=== PATIENT | male | born 1970 | race Caucasian/White ===

== ENCOUNTER → 2020-06-18 | Outpatient (BNVA) | payer MEDICAID, SELFPAY | PROVIDERS: PCP Family Medicine; Referring Provider Family Medicine; Visit Provider Physician Assistant | DX: K21.9 Gastro-esophageal reflux disease without esophagitis (principal); Z79.899 Other long term (current) drug therapy; D12.6 Benign neoplasm of colon, unspecified; D13.1 Benign neoplasm of stomach; K64.9 Unspecified hemorrhoids; K57.30 Diverticulosis of large intestine without perforation or abscess without bleeding | CPT/HCPCS: 99213 ==

== ENCOUNTER → 2020-09-18 09:42 | Outpatient (BNVA) | payer MEDICAID, SELFPAY | PROVIDERS: PCP Family Medicine; Visit Provider Physician Assistant | DX: Z76.89 Persons encountering health services in other specified circumstances (principal) ==

== ENCOUNTER 2020-11-19 09:59 | Emergency (ER) | payer MEDICAID, SELFPAY ==
[2020-11-19 10:04] VITALS: BP 141/93; PULSE 79; RESP 16; TEMP 36.6; O2SAT 98; BMI 27.7
--- NOTE | 2020-11-19 10:34 | ED_ITS ---
HPI - Back Pain/Injury General Chief Complaint: Back Pain/Injury Stated Complaint: Back Pain Time Seen by Provider: 11/19/20 10:09 Source: patient Mode of arrival: ambulatory History of Present Illness HPI Narrative: 50-year-old male with a past medical history of GERD, diverticulosis, hemorrhoids, presenting to the ED complaining low back pain since yesterday s/p heavy lifting at work. Denies direct trauma/injury, numbness, tingling, weakness, urinary incontinence/retention, fever, chills MD elicited complaint: back pain Related Data Home Medications Medication Instructions Recorded Confirmed amlodipine 5 mg tablet 5 mg PO DAILY 06/18/20 09/18/20 fenofibrate micronized 134 mg 134 mg PO DAILY 06/18/20 09/18/20 capsule sumatriptan succinate 100 mg tablet 100 mg PO Q2-4H PRN 06/18/20 09/18/20 Previous Rx's Medication Instructions Recorded omeprazole 20 mg capsule,delayed 20 mg PO DAILY #30 cap 06/18/20 release acetaminophen [Tylenol Extra 500 mg PO Q6H PRN #20 tab 11/19/20 Strength] cyclobenzaprine 5 mg PO Q8H PRN 5 Days #14 tab 11/19/20 lidocaine [Lidoderm] 1 patch TOPICAL DAILY PRN #30 ea 11/19/20 MDD remove after 12 hours naproxen 500 mg PO BID PRN 10 Days #20 tab 11/19/20 Allergies Allergy/AdvReac Type Severity Reaction Status Date / Time No Known Allergies Allergy Verified 11/19/20 10:07 [No Known Allergies*] Review of Systems Review of Systems: Constitutional: No Fever, No Chills Genitourinary: No Urinary Incontinence/retention Musculoskeletal: +back pain, No Myalgias Skin: No Skin Lesions, No rash Neuro: No Weakness, No Numbness, No Paresthesias Yes all other systems are reviewed and are negative FOR[facility]LY [facility] Past Medical History Attestation statement: The following information was validated with the patient. Medical History Acid reflux Diverticulosis of colon Hemorrhoids Social History Social History (Updated 09/18/20 @ 10:15 by Carlene Adorno PA-C) Alcohol intake: never Smoking Status: Never smoker Smoked in Last 30 Days: No Use of substances other than those prescribed or required for medical reasons: No Advance Directives: No Advance Directives Information Provided: No Current occupational status: employed Physical Exam Vital Signs: Vital Signs: Last Vital Signs Temp 97.8 F 11/19/20 10:04 Pulse 79 11/19/20 10:04 Resp 16 11/19/20 10:04 BP 141/93 H 11/19/20 10:04 Pulse Ox 98 11/19/20 10:04 Body Mass Index 27.7 Const: General: cooperative and healthy appearing Orientation/consciousness: patient oriented x3 Limitations: no limitations HENMT: Head: Yes normal to inspection Ears: hearing grossly normal bilaterally General nose exam: Normal external nose present Face and sinus: Yes normal facial exam Eyes: General: appearance normal, both eyes and all related structures EOM: EOMs intact bilaterally Neck: Other: No midline cervical spinous tenderness or step-off Neck: Yes normal visual inspection Resp: Effort & Inspection: normal respiratory effort Cardio: Rate: regular rate Back/Spine/Pelvis: Other: No midline thoracic/lumbar spinous tenderness/step- off or deformity. Pain not reproducible. Visible lumbar MSK spasming Skin: Rashes: no rashes Wounds: no wounds Neuro: Other: No saddle anesthesia General: patient oriented x3, gait normal and tone normal Gait exam (Neuro): Normal gait present Motor exam (neuro): 5/5 motor strength present throughout Extrem: General: Yes normal to inspection MDM - Back Pain/Injury MDM Narrative Medical decision making narrative: On exam VSS, NAD/well-appearing, no midline spinous tenderness throughout, no red flag symptoms, no saddle anesthesia. Likely MSK pain/spasming. Low concern for cauda equina/cord compression or fracture Differential Diagnosis Differential diagnosis: Likely lumbar radiculopathy and strain of lumbar region; Unlikely renal colic Discharge Plan Discharge Clinical Impression: Strain of lumbar region Patient Disposition: Home, Self-Care Instructions: Back Pain (ED) Additional Instructions: Your pain is likely musculoskeletal Flexeril is a muscle relaxer, take at night as it makes you drowsy, do not drive, drink alcohol, or operate machinery while taking it Naproxen as an anti-inflammatory / pain medication, take with food Lidoderm patches are numbing patches, apply to painful area In addition take Tylenol at home If symptoms persist or worsen, pain becomes unbearable, you developed urinary retention or incontinence, or weakness return to the ED Es probable que jones dolor sea musculoesquel?susana Flexeril es un relajante muscular, t?johnson por la noche ya que le produce somnolencia, no conduzca, no jerardo alcohol ni utilice maquinaria mientras lo woody. Naproxeno stephani medicamento antiinflamatorio / analg?sico, arpan con alimentos. Los parches de Lidoderm son parches que adormecen, se aplican al ?bo dolorida Adem?s, tome Tylenol en casa. Si los s?ntomas persisten o empeoran, el dolor se vuelve insoportable, desarroll? retenci?n urinaria o incontinencia o debilidad, regrese al servicio de urgencias Prescriptions: New acetaminophen [Tylenol Extra Strength] 500 mg tablet 500 mg PO Q6H PRN (Reason: pain or fever) Qty: 20 RF: 0 lidocaine [Lidoderm] 5 % adhesive patch,medicated 1 patch topical DAILY MDD remove after 12 hours PRN (Reason: pain) Qty: 30 RF: 0 naproxen 500 mg tablet 500 mg PO BID PRN (Reason: pain) 10 Days Qty: 20 RF: 0 cyclobenzaprine 5 mg tablet 5 mg PO Q8H PRN (Reason: pain (scale score 7-10)) 5 Days Qty: 14 RF: 0 No Action amlodipine 5 mg tablet 5 mg PO DAILY RF: 0 fenofibrate micronized 134 mg capsule 134 mg PO DAILY RF: 0 sumatriptan succinate 100 mg tablet 100 mg PO Q2-4H PRNRF: 0 omeprazole 20 mg capsule,delayed release(DR/EC) 20 mg PO DAILY Qty: 30 RF: 11 Referrals: Bushra Segura MD [Primary Care Provider] - 2 days Stand Alone Forms: Work/School Release Interventions: ED Discharge Assessment Last Done: 11/19/20 11:05 Discharge Date/Time: 11/19/20 11:15 Print Language: Zambian
== END 2020-11-19 11:15 | disposition home or self-care (01) ==
PROVIDERS: Emergency Provider Internal Medicine; PCP Family Medicine
DX: S39.012A Strain of muscle, fascia and tendon of lower back, initial encounter (principal); X50.0XXA Overexertion from strenuous movement or load, initial encounter; Y93.89 Activity, other specified; Y92.512 Supermarket, store or market as the place of occurrence of the external cause; Y99.0 Civilian activity done for income or pay
CPT/HCPCS: 99283; 99284

== ENCOUNTER → 2022-06-03 15:31 | Outpatient (BNVA) | payer OTHER, SELFPAY | PROVIDERS: PCP Family Medicine; Visit Provider Physician Assistant | DX: S97.81XA Crushing injury of right foot, initial encounter (principal); W20.8XXA Other cause of strike by thrown, projected or falling object, initial encounter | CPT/HCPCS: 73630; 99204 ==

== ENCOUNTER → 2022-06-07 09:33 | Outpatient (BNVA) | payer OTHER, SELFPAY | PROVIDERS: PCP Family Medicine; Visit Provider Physician Assistant Medical | DX: S97.81XD Crushing injury of right foot, subsequent encounter (principal); W20.8XXD Other cause of strike by thrown, projected or falling object, subsequent encounter | CPT/HCPCS: 99213 ==

== ENCOUNTER → 2022-06-23 13:03 | Outpatient (BNVA) | payer OTHER, SELFPAY | PROVIDERS: PCP Family Medicine; Visit Provider Physician Assistant | DX: S97.81XD Crushing injury of right foot, subsequent encounter (principal); W20.8XXD Other cause of strike by thrown, projected or falling object, subsequent encounter | CPT/HCPCS: 99213 ==

== ENCOUNTER → 2022-07-15 08:43 | Outpatient (BNVA) | payer OTHER, SELFPAY | PROVIDERS: PCP Family Medicine; Visit Provider Physician Assistant | DX: S97.81XD Crushing injury of right foot, subsequent encounter (principal); W20.8XXD Other cause of strike by thrown, projected or falling object, subsequent encounter | CPT/HCPCS: 99213 ==

== ENCOUNTER → 2022-08-18 13:41 | Outpatient (BNV) | payer MEDICAID, SELFPAY | PROVIDERS: PCP Family Medicine; Visit Provider Internal Medicine | DX: D75.1 Secondary polycythemia (principal) | CPT/HCPCS: 99203; 99213; 99214 ==

== ENCOUNTER → 2022-08-25 13:18 | Outpatient (BNVA) | payer OTHER, SELFPAY | PROVIDERS: PCP Family Medicine; Visit Provider Physician Assistant | DX: S97.81XD Crushing injury of right foot, subsequent encounter (principal); W20.8XXD Other cause of strike by thrown, projected or falling object, subsequent encounter | CPT/HCPCS: 99213 ==

== ENCOUNTER 2023-11-11 08:58 | Outpatient (REF) | payer MEDICAID, SELFPAY ==
[2023-11-11 11:52] LABS: Estimated Average Glucose 123 mg/dL; Hemoglobin A1c % 5.9 % (<6.0)
[2023-11-11 12:57] LABS: Alanine Aminotransferase 29 U/L (0-40); Albumin Level 4.5 g/dL (3.5-5.0); Alkaline Phosphatase 83 U/L (39-117); Anion Gap 11 (12-20); Aspartate Amino Transferase 15 U/L (5-37); Bilirubin Total 0.5 mg/dL (0.0-1.0); Blood Urea Nitrogen 17 mg/dL (9-16); Calcium 9.8 mg/dL (8.4-10.2); Carbon Dioxide 30 mmol/L (22-29); Chloride 105 mmol/L (96-108); Cholesterol 211 mg/dL (<200); Estimated Glomerular Filt Rate > 60; Glucose Random 92 mg/dL (60-115); HDL Cholesterol 35 mg/dL (>40); LDL Cholesterol Calculated 106 mg/dL (<100); Potassium 3.9 mmol/L (3.3-5.1); Sodium 142 mmol/L (135-145); Total Protein 7.3 g/dL (6.5-8.0); Triglycerides 352 mg/dL (<150)
[2023-11-11 13:14] LABS: Vitamin D 25-OH Total 26.8 ng/mL (>30)
[2023-11-11 15:31] LABS: Reflex LDLD? No
== END 2023-11-11 08:59 | disposition home or self-care (01) ==
LOC: HO.HHCL 08:58
PROVIDERS: Visit Provider Family Medicine
DX: E55.9 Vitamin D deficiency, unspecified (principal); I10 Essential (primary) hypertension; E78.1 Pure hyperglyceridemia
CPT/HCPCS: 36415; 80053; 80061; 82306; 83036

== ENCOUNTER 2024-08-30 18:26 | Outpatient (REF) | payer MEDICAID, SELFPAY | END 2024-08-30 18:27 | disposition home or self-care (01) | LOC: HO.HHCLNP 18:26 | PROVIDERS: Visit Provider Internal Medicine | DX: J02.9 Acute pharyngitis, unspecified (principal) | CPT/HCPCS: 87070 ==

== ENCOUNTER 2024-10-31 13:40 | Outpatient (AMB) | payer BC, SELFPAY ==
--- NOTE | 2024-10-31 13:41 | MHC.OFFVIS ---
Intake Visit Reasons: Hemorrhoids Intake Note: This patient presents for hemorrhoids. Pt c/o; reports no rectal bleeding, no constipation. Director Of Institutional Giving Required: Yes Director Of Institutional Giving Language: Lease Attendant Services: Director Of Institutional Giving Present (Claire) Information Interpreted: non-clinical & clinical Accompanied by: Self / Same As Patient Allergies No Known Allergies [No Known Allergies*] Allergy (Verified 10/31/24 13:49) Medication List - Last Reviewed 10/31/24 by HARSH Hernandez acetaminophen (Tylenol Extra Strength) 500 mg PO Q6H PRN amlodipine 1 tab PO DAILY atorvastatin 10 mg PO DAILY cholecalciferol (vitamin D3) 1 tab PO DAILY cyclobenzaprine 5 mg PO Q8H PRN 5 days fenofibrate micronized 134 mg PO DAILY losartan 1 tab PO DAILY naproxen 500 mg PO BID PRN 10 days omeprazole 20 mg PO DAILY sumatriptan succinate 100 mg PO Q2-4H PRN HPI HPI Hemorrhoids: Details: 54-year-old male here because of hemorrhoid issues. He says that he has had a hemorrhoid that is always ?out? all the time. He says that this bothering him because of pain, frequent swelling and discomfort. He notices some occasional bleeding as well He had a history hemorrhoidectomy with Dr. Zacarias in 2006. [facility] Medical History (Updated 10/31/24 @ 15:24 by Gopal Waddell MD) Hemorrhoids with complication Allergic rhinitis Chronic gastritis without bleeding Chronic esophagitis Tubular adenoma Hypertension (~10/10/12) Impaired fasting glucose (~08/09/12) Chronic kidney disease (~04/24/14) Migraine (~08/09/12) GERD (gastroesophageal reflux disease) (~08/09/12) Transaminitis (~08/09/12) Vitamin D deficiency (~08/09/12) Hypertriglyceridemia (~08/09/12) Diverticulosis of colon Hemorrhoids Acid reflux Surgical History H/O hemorrhoidectomy (~2006) Hx laparoscopic cholecystectomy (~12/09/11) S/P cholecystectomy (~08/09/12) Family History Sister Diabetes Social History Household Members: Friend(s) Household Members Other:: Housing: House Alcohol intake: never Patient Tobacco Use Status: Never used Tobacco service: No Current occupational status: employed Current occupation: information security architect Review of Systems Const Denies chills and Denies fever(s) Card Denies chest pain, Denies dyspnea and Denies dyspnea on exertion Resp Denies cough, Denies dyspnea and Denies dyspnea on exertion GI Denies hematochezia and Denies change in bowel habits Denies hematuria and Denies difficulty urinating Musc Denies back pain and Denies limited range of motion Neuro Denies focal weakness and Denies convulsions Psych Denies depression and Denies mood swings Physical Exam Const General: comfortable and no acute distress Orientation/consciousness: patient oriented x3 Neck Neck: Yes no lymphadenopathy Resp Auscultation: clear to auscultation bilaterally Cardio Rhythm: regular rhythm GI Other: Rectal exam shows a large external hemorrhoid posteriorly Palpation (GI): Soft to palpation, nontender and no guarding Neuro General: patient oriented x3 Office Procedures Anoscopy He was in rudy-knife position. The anoscope was gently inserted. A full examination of the anal canal was done. He did have this mixed hemorrhoidal column posteriorly, mostly external in component. There were no other lesions. There was no fissure or ulceration. There was no bleeding. [id number] Assessment & Plan Assessment & Plan (1) Hemorrhoids with complication: Code(s): K64.8 - Other hemorrhoids Category: Medical Plan: He has this prominent internal external hemorrhoidal column posteriorly. He says that with bothers seems a lot with frequent swelling, pain and discomfort. He wants to proceed with hemorrhoidectomy. I explained to him the technique of exam under anesthesia and hemorrhoidectomy. I reviewed the risks including but not limited to bleeding, infections, postop pain, as well as the benefits and alternatives. I also explained to him what to expect postoperatively especially with regards to pain control. He understands and wants to proceed. Coding Level of Care Code New Pt Level 3 (21992) Diagnoses Hemorrhoids with complication K64.8 CPT Codes Details - CPT: 84998-[id number] ([id number])
--- OUTSIDE RECORDS SUMMARY | 2024-10-31 16:47 | XMS_ITS | Encounter Summary ---
Author Organization [employer] Address [address] [place] [address] Care Team Providers Care Commodity Manager Name Role Phone Bushra Segura MD Primary Care Provider [phone] Vladimir Domingo PharmD Unavailable [phone] Reason for Visit * Reason Onset Date Comments Reschedule 07/12/2023 Encounter Details Date Type Department Care Team ([facility] st Contact Info) Description 07/12/2023 Telephone [facility] MEDICINE [address] [place], [place] [id number] Bushra Segura MD [address] [place], [place] [phone] Reschedule Social History Tobacco Use Types Packs/Day Years Used Date Smoking Tobacco: Never Passive Smoke Exposure: Never Smokeless Tobacco: Never Depression Answer Date Recorded Patient Health Questionnaire-9 Score 0 10/05/2022 Housing Stability Answer Date Recorded What is your housing situation today? I have duong gross 07/07/[address] you li ve. Do you have problems with any of the following? None of the above 07/07/2023 Food Insecurity Answer Date Recorded Within the past 12 months, y ou worried that your food would run out before you got money to buy more: Never True 07/07/2023 Within the past 12 months,th e food you bought just didn't last and you didn't have enough money to get more: Never True 10/2022 Transportation Answer Date Recorded In the past 12 months, has l ack of transportation kept you from medical appts, meetings, work or from getting things needed for daily living? No 07/07/2023 Utilities Answer Date Recorded In the past 12 months, has t he electric, gas, oil or water company threatened to shut off services in your home? No 07/07/2023 Depression Answer Date Recorded Patient Health Questionnaire-2 Score 0 10/05/2022 Sex and Gender Information Value Date Recorded Sex Assigned at Male 07/05/2022 10:15 AM EDT Legal Sex Male 10:15 AM EDT Gender Identity Male 07/05/2022 10:15 AM EDT Sexual Orientation Straight 07/05/2022 10 :15 AM EDT documented as of this encounter Miscellaneous Notes * Telephone Encounter - Yusra Oliveira - 07/12/2023 4:00 PM EST Tc from pt requesting r/s 07/19/2023 (HTN / lab) appt, publicity writer attempted to schedule no availabilityafter 3:00PM due to pt request. documented in this encounter Plan of Treatment Upcoming Encounters Date Type Department Care Team (Late st Contact Info) Description 12/04/2024 2:15 PM EDT Office Visit [facility] [address] [place] [address] Bushra Segura MD [address] [place] [address] 01/18/2025 2:30 PM EDT Office Visit [facility] OPTOMETRY [address] [place] [address] Judd, Elisabeth, OD [address] [place] [address] documented as of this encounter Goals Goal Patient Goal Type Associated Problems Recent Progress Patient-Stated? Author Blood Pressure < 140/90 Blood Pressure 148/94( 025 11:53 AM EST) No Vladimir Domingo, PharmD documented as of this encounter Visit Diagnoses Not on filedocumented in this encounter Additional Health Concerns Assessment Noted Time PHQ-9 Depression Total Score: 0 10/05/19 23 11:52 AM EST documented as of this encounter Care Teams Commodity Manager Relationship Specialty Start Date End Date Bushra Segura MD [address] [place] [address] PCP - General Family Medicine 08/06/11 Vladimir Domingo, DanialD [address] [place] [address] Pharmacist Internal Medicine 10/11/22 documented as of this encounter
--- OUTSIDE RECORDS SUMMARY | 2024-10-31 16:47 | XMS_ITS | Encounter Summary ---
Author Organization [facility] Address [address] [place] [address] Care Team Providers Care Magnetic Prospector Name Role Phone Bushra Segura MD Primary Care Provider [phone] Vladimir Domingo PharmD Unavailable [phone] Encounter Details Date Type Department Care Team (Latest Contact Info) Description 11/20/2019 Abstract [facility] CONVERSIONS Dental, Provider, DDS Social History Tobacco Use Types Packs/Day Years Used Date Smoking Tobacco: Never Assessed Sex and Gender Information Value Date Recorded Sex Assigned at Male 07/05/2022 10:15 AM EDT Legal Sex Male 10:15 AM EDT Gender Identity Male 07/05/2022 10:15 AM EDT Sexual Orientation Straight 07/05/2022 10 :15 AM EDT documented as of this encounter Plan of Treatment Upcoming Encounters Date Type Department Care Team (Late st Contact Info) Description 12/04/2024 2:15 PM EDT Office Visit [facility] MEDICINE [address] [place] [address] Bushra Segura MD [address] [place] [address] 01/18/2025 2:30 PM EDT Office Visit [facility] OPTOMETRY [address] [place] [address] Elisabeth Whaley, OD [address] [place] [address] documented as of this encounter Visit Diagnoses Not on filedocumented in this encounter Care Teams Magnetic Prospector Relationship Specialty Start Date End Date Bushra Segura MD [address] [place] [address] PCP - General Family Medicine 08/06/11 Vladimir Domingo, DanialD [address] [place] [address] Pharmacist Internal Medicine 10/11/22 documented as of this encounter
--- OUTSIDE RECORDS SUMMARY | 2024-10-31 16:47 | XMS_ITS | Clinical Summary ---
Author Organization [facility] Address [address] [place] [address] Care Team Providers Care Cabinetmaker Apprentice Name Role Phone Bushra Segura MD Primary Care Provider [phone] Vladimir Domingo PharmD Unavailable [phone] Allergies Active Allergy Reactions Criticality Noted Date Comments Nsaids 08/30/2022 CKD Medications omeprazole (PriLOSEC) [address] capsule TAKE 1 CAPSULE BY MOUTH EVERY DAY FOR HEARTBURN 90 capsule 2 12/05/19 24 Active Blood Pressure kit 1 each 2 times daily. 1 kit 12/20/19 24 025 Active amLODIPine (Norvasc) 10 MG tablet Take 1 tablet (10 mg) by mouth Once per day. 90 tablet 3 01/24/20 24 Active loratadine (Claritin) 10 MG tablet Take 1 tablet (10 mg) by mouth Once per day. 90 tablet 1 01/24/20 24 025 Active SUMAtriptan (Imitrex) 50 MG tablet Take 1 tablet (50 mg) by mouth 1 (one) time if needed for migraine for up to 1 dose. May repeat dose once in 2 hours if no relief. Do not exceed 2 doses in 24 hours. 9 tablet 3 01/24/20 24 Active atorvastatin (Lipitor) 10 MG tablet Take 1 tablet (10 mg) by mouth at bedtime. 30 tablet 11 01/24/20 24 025 Active benzocaine-ment hol (Chloraseptic) 6-10 MG lozengeIndicati ons:Pharyngitis , unspecified etiology Dissolve 1 lozenge in the mouth every 2 (two) hours if needed for sore throat. 100 lozenge 08/30/20 24 025 Active hydrocortisone (Anusol-HC) 2.5 % rectal cream Insert into the rectum 2 times daily. 28 g 1 09/21/19 25 Active cholecalciferol (Vitamin D-3) 50 MCG (1999) tablet TAKE 1 TABLET BY MOUTH ONCE DAILY 90 tablet 3 12/03/19 23 025 Discontinued(Me d list cleanup (will not trigger notification to Pharmacy)) Active Problems Problem Noted Date Diagnosed Date Hemorrhoid 09/21/2024 Assessment & Plan (09/21/2024 2:56 PM EST): - patient states he does not need laxatives - patient is using Annusol / Preparation-H - patient requests a referral to general surgeon for hemorrhoidectomy Right ankle pain 04/17/2024 Assessment & Plan (04/24/2024 4:16 PM EDT): - patient has been followed by orthopedist - scheduled for MRI Assessment & Plan (04/17/2024 11:33 AM EDT): Pt here for a sick on site follow up, seen 2 days ago 04/15/2024 at [facility] ER with c/o 10/10 right ankle pain ( Seen the previous day there as well with similar symptoms). 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 9 cc blood were drained, the note describes no evidence of infection. told to follow up with Orthopedics. he had initially resolution of symptoms after draining only to return the following say with severe ankle pain. unable to flex or extend his foot or bear weight. In the ER he was found to be Hypertensive 215/111 on arrival. on 04/15 he had another aspiration and 10 cc were drained high suspicion for reacumulation of atraumatic hemarthrosis. He was seen by Sher Newell re-evaluated the patient and had no chnahes in their recommendation. They recommended 1-2 week follow up. Today he is here requesting a referral, he already has an appointment with Ortho for tomorrow at 2:00 PM . He states his pain is down to a 3/10. No fever or any other associated symptoms On exam his right ankle is swollen when compared to the left. No increase in temperature, no redness, no discharge, 2 small incisions noted where the arthrocentesis took place Plan: Seeing Ortho tomorrow, pending on their evaluation he may or may not require further testing since it is rather unusual to have a spontaneous hemarthrosis of the ankle. He will discuss with PCP pending Ortho eval/work up Dyslipidemia 01/24/2024 Assessment & Plan (09/11/2024 6:15 AM EST): - last lipid profile on 11/11/23, elevated Triglyceride, low HDL - 10-year ASCVD risk > 7.5%, now in statin-benefit group - Continue working on lifestyle modifications - currently prescribed atorvastatin Assessment & Plan (01/31/2024 10:57 AM EDT): - last lipid profile on 11/11/23, elevated Triglyceride, low HDL - 10-year ASCVD risk > 7.5%, now in statin-benefit group - Continue working on lifestyle modifications - agreed to start atorvastatin therapy (although patient seems hesitant) - Check lipid profile and hepatic panel in 1 mo after starting medications, or sooner if any concerning symptom Diarrhea 12/06/2023 Assessment & Plan (12/06/2023 11:39 AM EDT): Likely enteritis self limited Drink plenty of fluids and rest Letter for work will be provided Erythrocytosis 10/05/2022 Assessment & Plan (09/21/2024 2:54 PM EST): - Evaluated by Door Operator, last seen in - Door Operator's impression is benign and 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, hemoconcentration -08/18/22 Erythropoietin level 8.5 mIU/mL (normal); lactate dehydrogenase 143 U/L Assessment & Plan (10/14/2023 6:11 AM EST): - Evaluated by Door Operator, last seen in Apr 2023 -Hct 47.5 on 08/18/22, 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, hemoconcentration -Pt encouraged to increase water intake -08/18/22 Erythropoietin level 8.5 mIU/mL (normal); lactate dehydrogenase 143 U/L Assessment & Plan (01/25/2023 2:01 PM EDT): Patient was referred to Door Operator; Seen by Door Operator on 08/18/22 -Hct 47.5 on 08/18/22, 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 -Pt encouraged to increase water intake -08/18/22 Erythropoietin level 8.5 mIU/mL (normal); lactate dehydrogenase 143 U/L Follow-up in 2 months Assessment & Plan (10/05/2022 12:28 PM EST): Patient was referred to Door Operator; Seen by Door Operator on 08/18/22 -Hct 47.5 on 08/18/22, 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 - agreed to start a statin therapy, although patient seems hesitant Assessment & Plan (01/24/2024 4:57 PM EDT): - Previous medication: fenofibrate 134 mg daily - Now in a statin-benefit group - Continue working on lifestyle modification. - agreed to start a statin therapy, although patient seems hesitant Assessment & Plan (10/14/2023 6:11 AM EST): - 08/04/22 TC 146; TG 106; HDL 38; LDL 88 - Current medication: fenofibrate 134 mg daily - Not in a statin-benefit group, but consider switching fenofibrate to statin in near future as his ASCVD risk increases - Continue working on lifestyle modification. - Check fasting lipid profile annually Assessment & Plan (08/30/2023 6:26 AM EST): - 08/04/22 TC 146; TG 106; HDL 38; LDL 88 - Current medication: fenofibrate 134 mg daily - Not in a statin-benefit group, but consider switching fenofibrate to statin in near future as his ASCVD risk increases - Continue working on lifestyle modification. - Check fasting lipid profile annually Assessment & Plan (01/25/2023 1:59 PM EDT): - 08/04/22 TC 146; TG 106; HDL 38; LDL 88 - Current medication: fenofibrate 134 mg daily - Not in a statin-benefit group, but consider switching fenofibrate to statin in near future as his ASCVD risk increases - Continue working on lifestyle modification. - Check fasting lipid profile annually Assessment & Plan (10/05/2022 12:06 PM EST): - 08/04/22 TC 146; TG 106; HDL 38; LDL 88 - Current medication: fenofibrate 134 mg daily - Not in a statin-benefit group, but consider switching fenofibrate to statin in near future as his ASCVD risk increases - Continue working on lifestyle modification. - Check fasting lipid profile annually Assessment & Plan (08/30/2022 9:49 AM EST): - 08/04/22 TC 146; TG 106; HDL 38; LDL 88 - Current medication: fenofibrate 134 mg daily - Not in a statin-benefit group, but consider switching fenofibrate to statin in near future as his ASCVD risk increases - Continue working on lifestyle modification. - Check fasting lipid profile annually CKD (chronic kidney disease) stage 3, GFR 30-59 ml/min 08/30/2022 Assessment & Plan (09/11/2024 6:12 AM EST): -Previously seeing grinding room supervisorDr. Galvez, last seen on 07/06/22 -Optimize BP control -Avoid nephrotoxic drugs -Consider re-referral Assessment & Plan (04/24/2024 4:16 PM EDT): -Previously seeing grinding room supervisorDr. Galvez, last seen on 07/06/22 -Optimize BP control -Avoid nephrotoxic drugs -Consider re-referral Assessment & Plan (01/31/2024 10:54 AM EDT): -Previously seeing grinding room supervisorDr. Galvez, last seen on 07/06/22 -Optimize BP control -Avoid nephrotoxic drugs -Consider re-referral Assessment & Plan (10/14/2023 6:09 AM EST): -Co-managed with grinding room supervisorDr. Galvez, last seen on 07/06/22 -Optimize BP control -Avoid nephrotoxic drugs Assessment & Plan (01/25/2023 2:00 PM EDT): -Co-managed with grinding room supervisorDr. Galvez, last seen on 07/06/22 -Optimize BP control -Avoid nephrotoxic drugs Assessment & Plan (10/05/2022 12:07 PM EST): -Co-managed with grinding room supervisorDr. Galvez, last seen on 07/06/22 -Optimize BP control -Avoid nephrotoxic drugs Assessment & Plan (08/30/2022 9:53 AM EST): -Co-managed with grinding room supervisorDr. Galvez, last seen on 07/06/22 -08/04/22 BUN 19; SCr 1.42; eGFR 59; K 4.3 -Optimize BP control -Avoid nephrotoxic drugs Assessment & Plan (08/30/2022 7:15 AM EST): -Co-managed with grinding room supervisor, Dr. Galvez, last seen on 07/06/22 -Optimize BP control -Avoid nephrotoxic drugs Tubular adenoma of colon 08/30/2022 Assessment & Plan (10/14/2023 6:08 AM EST): -Colonoscopy by Dr. Mehta, [facility], on 05/27/20, tubular adenoma -Recommended to repeat in 5 years Assessment & Plan (10/05/2022 12:07 PM EST): -Colonoscopy by Dr. Mehta, [facility], on 05/27/20, tubular adenoma -Recommended to repeat in 5 years Assessment & Plan (08/30/2022 9:54 AM EST): -Colonoscopy by Dr. Mehta, [facility], on 05/27/20, tubular adenoma -Recommended to repeat in 5 years Assessment & Plan (08/30/2022 7:13 AM EST): -Colonoscopy by Dr. Mehta, [facility], on 05/27/20, tubular adenoma -Recommended to repeat in 5 years Prediabetes 08/30/2022 Assessment & Plan (09/11/2024 6:13 AM EST): -11/11/23 A1C 5.9% -Continue working on lifestyle modification -Diabetes screen annually Assessment & Plan (01/24/2024 4:54 PM EDT): -11/11/23 A1C 5.9% -Continue working on lifestyle modification -Diabetes screen annually Assessment & Plan (10/14/2023 6:09 AM EST): -08/04/22 A1C 5.7% -Continue working on lifestyle modification -Diabetes screen annually Assessment & Plan (10/05/2022 12:07 PM EST): -08/04/22 A1C 5.7% -Continue working on lifestyle modification -Diabetes screen q6-12 mo Assessment & Plan (08/30/2022 9:55 AM EST): -08/04/22 A1C 5.7% -Continue working on lifestyle modification -Diabetes screen q6-12 mo Chronic esophagitis 08/30/2022 Assessment & Plan (10/05/2022 12:12 PM EST): Diagnosed on EGD on 05/23/[address] Arnaldo Mehta. No H.pylori present. No intestinal metaplasia seen. Hypertension 08/06/2022 Assessment & Plan (09/11/2024 6:12 AM EST): -Goal BP < 140/90 per JNC-8, < 130/80 per ACC/AHA guideline - continues to be elevated -Co-managed with [facility] pharmacist / CDTM and grinding room supervisor -Continue amlodipine 10 mg daily, improve adherence -Continue checking BP at home. Pt declined 24-hour BP monitoring by grinding room supervisor. -Continue Working on lifestyle modifications. Discussed about low sodium diet -Treatment HX: --HCTZ -> hypokalemia; lisinopril was discontinued once due to ESE and discontinued again --Metoprolol was self-disconitnued due to concern of side effects --losartan 12.5 mg was self-discontinued since pt had not been adherent and was found to have goal BP without it - Patient was previously seeing a grinding room supervisor, but stopped going. Consider re-referral to grinding room supervisor / coach mechanic Assessment & Plan (04/24/2024 4:15 PM EDT): -Goal BP < 140/90 per JNC-8, < 130/80 per ACC/AHA guideline - continues to be elevated -Co-managed with [facility] pharmacist / CDTM and grinding room supervisor -Continue amlodipine 10 mg daily, improve adherence -Continue checking BP at home. Pt declined 24-hour BP monitoring by grinding room supervisor. -Continue Working on lifestyle modifications. Discussed about low sodium diet -Treatment HX: --HCTZ -> hypokalemia; lisinopril was discontinued once due to ESE and discontinued again --Metoprolol was self-disconitnued due to concern of side effects --losartan 12.5 mg was self-discontinued since pt had not been adherent and was found to have goal BP without it - Patient was previously seeing a grinding room supervisor, but stopped going. Consider re-referral to grinding room supervisor / coach mechanic Assessment & Plan (04/17/2024 11:30 AM EDT): Goal BP < 140/90 per JNC-8, < 130/80 per ACC/AHA guideline Elevated for last few days likely due to pain Pt tells me everytime he checks his Bllod pressure at home is normal , so he discontinued the amlodipine 10 mg daily. Plan: Continue checking BP at home. Pt declined 24-hour BP monitoring by grinding room supervisor.Continue Working on lifestyle modifications. Pt duniava has appointment with PCP 05/04/2024 -Treatment HX: --HCTZ -> hypokalemia; lisinopril was discontinued once due to ESE and discontinued again --Metoprolol was self-disconitnued due to concern of side effects --losartan 12.5 mg was self-discontinued since pt had not been adherent and was found to have goal BP without it Assessment & Plan (01/31/2024 10:53 AM EDT): -Goal BP < 140/90 per JNC-8, < 130/80 per ACC/AHA guideline - elevated for last few days and patient lost his medication -Co-managed with [facility] pharmacist / CDTM and grinding room supervisor -Continue amlodipine 10 mg daily., patient has not been taking so will restart -Continue checking BP at home. Pt declined 24-hour BP monitoring by grinding room supervisor. -Continue Working on lifestyle modifications. -Treatment HX: --HCTZ -> hypokalemia; lisinopril was discontinued once due to ESE and discontinued again --Metoprolol was self-disconitnued due to concern of side effects --losartan 12.5 mg was self-discontinued since pt had not been adherent and was found to have goal BP without it - Patient was previously seeing a grinding room supervisor, but stopped going. Consider re-referral to grinding room supervisor / coach mechanic Assessment & Plan (10/14/2023 6:06 AM EST): -Goal BP < 140/90 per JNC-8, < 130/80 per ACC/AHA guideline -Suboptimal control, questionable medication adherence -Co-managed with [facility] pharmacist / CDTM and grinding room supervisor -Continue amlodipine 10 mg daily. -Continue checking BP at home. Pt declined 24-hour BP monitoring by grinding room supervisor. -Continue Working on lifestyle modifications. -Treatment HX: --HCTZ -> hypokalemia; lisinopril was discontinued once due to ESE and discontinued again --Metoprolol was self-disconitnued due to concern of side effects --losartan 12.5 mg was self-discontinued since pt had not been adherent and was found to have goal BP without it Follow-up in 3 months or sooner prn Assessment & Plan (08/30/2023 6:25 AM EST): -Goal BP < 140/90 per JNC-8, < 130/80 per ACC/AHA guideline -Suboptimal control in JunJul 2022 -Co-managed with [facility] pharmacist / CDTM and grinding room supervisor -Continue amlodipine 10 mg daily. -Continue checking BP at home. Pt declined 24-hour BP monitoring by grinding room supervisor. -Continue Working on lifestyle modifications. -Treatment HX: --HCTZ -> hypokalemia; lisinopril was discontinued once due to ESE and discontinued again --Metoprolol was self-disconitnued due to concern of side effects --losartan 12.5 mg was self-discontinued since pt had not been adherent and was found to have goal BP without it Follow-up in 4-6 months or sooner prn Assessment & Plan (02/04/2023 8:59 AM EDT): -Goal BP < 140/90 per JNC-8, < 130/80 per ACC/AHA guideline -Suboptimal control in JunJul 2022 -Co-managed with [facility] pharmacist / CDTM and grinding room supervisor -Continue amlodipine 10 mg daily. -Continue checking BP at home. Pt declined 24-hour BP monitoring by grinding room supervisor. -Continue Working on lifestyle modifications. -Treatment HX: --HCTZ -> hypokalemia; lisinopril was discontinued once due to ESE and discontinued again --Metoprolol was self-disconitnued due to concern of side effects --losartan 12.5 mg was self-discontinued since pt had not been adherent and was found to have goal BP without it Follow-up in 4-6 months or sooner prn Assessment & Plan (10/05/2022 12:22 PM EST): -Goal BP < 140/90 per JNC-8, < 130/80 per ACC/AHA guideline -Suboptimal control in JunJul 2022 -Co-managed with [facility] pharmacist / CDTM and grinding room supervisor -Continue amlodipine 10 mg daily. -Continue checking BP at home. Pt declined 24-hour BP monitoring by grinding room supervisor. -Continue Working on lifestyle modifications. -Treatment HX: --HCTZ -> hypokalemia; lisinopril was discontinued once due to ESE and discontinued again --Metoprolol was self-disconitnued due to concern of side effects --losartan 12.5 mg was self-discontinued since pt had not been adherent and was found to have goal BP without it Follow-up in 4 months or sooner prn Assessment & Plan (08/30/2022 9:54 AM EST): -Goal BP < 140/90 per JNC-8, < 130/80 per ACC/AHA guideline -Suboptimal control in JunJul 2022 -Co-managed with [facility] pharmacist / CDTM and grinding room supervisor -Continue amlodipine 10 mg daily. -Continue checking BP at home. Pt declined 24-hour BP monitoring by grinding room supervisor. -Continue Working on lifestyle modifications. -Treatment HX: --HCTZ -> hypokalemia; lisinopril was discontinued once due to ESE and discontinued again --Metoprolol was self-disconitnued due to concern of side effects --losartan 12.5 mg was self-discontinued since pt had not been adherent and was found to have goal BP without it Assessment & Plan (08/30/2022 7:20 AM EST): -Goal BP < 140/90 per JNC-8, < 130/80 per ACC/AHA guideline -Suboptimal control in Jun - Jul 2022 -Co-managed with [facility] pharmacist / CDTM and grinding room supervisor -Continue amlodipine 10 mg daily. -Continue checking BP at home. Pt declined 24-hour BP monitoring by grinding room supervisor. -Continue Working on lifestyle modifications. -Treatment HX: --HCTZ -> hypokalemia; lisinopril was discontinued once due to ESE and discontinued again --Metoprolol was self-disconitnued due to concern of side effects --losartan 12.5 mg was self-discontinued since pt had not been adherent and was found to have goal BP without it Allergic rhinitis 02/24/2016 Assessment & Plan (02/04/2023 9:00 AM EDT): Works in [employer] and possibly seasonal Assessment & Plan (10/05/2022 12:09 PM EST): Works in [employer] and possibly seasonally Gastroesophageal reflux disease 08/09/2012 Assessment & Plan (10/14/2023 6:09 AM EST): Continue Omeprazole 20mg qhs Assessment & Plan (01/25/2023 2:00 PM EDT): Continue Omeprazole 20mg qhs Assessment & Plan (10/05/2022 12:14 PM EST): Continue Omeprazole 20mg qhs History of cholecystectomy 08/09/2012 Migraine 08/09/2012 Assessment & Plan (04/24/2024 4:18 PM EDT): - patient was previously taking sumatriptan but states stopped taking because he knows the causes of migraine which are tension and neck pain Assessment & Plan (01/24/2024 4:55 PM EDT): - resume sumatriptan - No need for prophylaxis at this time Assessment & Plan (08/30/2023 6:26 AM EST): Controlled, has 1 migraine GRAY per month No prophylaxis. Assessment & Plan (10/05/2022 12:19 PM EST): Controlled, has 1 migraine GRAY per month No prophylaxis. Vitamin D deficiency 08/09/2012 Assessment & Plan (10/14/2023 6:10 AM EST): Labs: 06/26/21 Vitamin D was 31. -Continue Cholecalciferol for supplement Assessment & Plan (01/25/2023 2:01 PM EDT): Labs: 06/26/21 Vitamin D was 31. -Continue Cholecalciferol for supplement Assessment & Plan (10/05/2022 12:20 PM EST): Labs: 06/26/21 Vitamin D was 31. -Continue Cholecalciferol for supplement Resolved Problems Problem Noted Date Diagnosed Date Resolved Date Pharyngitis 08/30/2024 09/11/2024 Assessment & Plan (08/30/2024 10:16 AM EST): P with c/o sore throat x 3 days no other associated symptoms On exam he has a very erythematous pharynx, there is also evidence of postnasal drip Rapid testing negative for Flu, Clovid and Strep Exam suggestive of infection, will treat empirically Plan: Continue Antihistaminics (pt on Loratadine), Abx, Acetaminophen. Pt is allergic to NSAIDS Await throat Cx. Follow up if no improvement Thrombocytosis 08/06/2022 10/05/2022 Assessment & Plan (08/30/2022 9:57 AM EST): -08/04/22 hematocrit 52.1 -He does not smoke cigarettes -No known pulmonary disorder -Normal erythropoietin level in 2018 -Refer to mat linker Chronic kidney disease (CKD) stage G3a/A1, moderately decreased glomerular filtration rate (GFR) between 45-59 mL/min/1.73 square meter and albuminuria creatinine ratio less than 30 mg/g 08/06/2022 08/30/2022 Elevated levels of transamin ase & lactic acid dehydrogenase 08/09/2012 08/30/2022 Encounters Date Type Department Care Team Description 10/29/2024 Telephone [facility] [address] [place] [address] Bushra Segura MD 10/26/2024 Telephone [facility] [place] [address] Bushra Segura MD Appointment Request 09/28/2024 Telephone [facility] [place] [address] Vladimir Domingo, PharmD Letter for School/Work 09/28/2024 Travel 09/25/2024 Telephone [facility] [place] [place] [place] [address] Bushra Segura MD 09/14/2024 Orders Only [facility] [place] [place] [place] [address] Bushra Segura MD Hypertension, unspecified type (Primary Dx) 09/12/2024 Telephone [facility] [place] [address] Bushra Segura MD 09/12/2024 Telephone [facility] [place] [address] Lina Preston RN 09/11/2024 3:45 PM EST Office Visit [facility] [place] [address] Bushra Segura MD Hypertension, unspecified type (Primary Dx); Stage 3a chronic kidney disease (CMS/HCC); Prediabetes; Erythrocytosis; Hypertriglyceridemia; Dyslipidemia; Encounter for immunization; Vitamin D deficiency; Hemorrhoids, unspecified hemorrhoid type 09/11/2024 Travel 08/30/2024 10:00 AM EST Office Visit [facility] [place] [address] Morales Gipson MD Viral URI (Primary Dx); Pharyngitis, unspecified etiology from Last 3 Months Immunizations Name Administration Dates Next Due Hep B, adult 04/24/2024,10/03/2023,01/25/2023 Influenza injectable quadriv alent IIV4 with preservative 06/01/2016,05/19/2015 Influenza injectable quadriv alent preservative free 10/03/2023,10/05/2022,06/22/2021,2018,08/24/2018,06/13/2017 Influenza, IIV3, injectable 09/18/2014, 1 Influenza, Split (incl. giuseppe fied surface antigen) 06/20/2013,08/09/2012 Influenza, Unspecified 09/18/2014,05/25/2011 Influenza, seasonal, injecta ble, preservative free 09/11/2024 Moderna Covid-19 Vaccine 12+ 08/04/2021,12/16/19,11/17/2020 Pfizer Covid-19 Vaccine 12+ 09/11/2024, 2 Pfizer Covid-19 Vaccine 12+ Bivalent 10/05/2022 Pfizer Covid-19 Vaccine 12+ kwaku-sucrose (More Cap) 04/30/2022 Tdap 05/25/2011 Zoster, Recombinant 03/26/2020,11/05/2019 Family History Medical History Relation Name Comments Diabetes Other Relation Name Status Comments Other Social History Tobacco Use Types Packs/Day Years Used Date Smoking Tobacco: Never Passive Smoke Exposure: Never Smokeless Tobacco: Never Tobacco Cessation:Counseling Given: Not Answered Depression Answer Date Recorded Patient Health Questionnaire-9 Score 0 01/24/2024 Patient Health Questionnaire-9 Score 0 01/24/2024 Last PHQ-9: Questionnaire Data Not on file 0 01/24/2024 Housing Stability Answer Date Recorded What is your housing situation today? I have duong gross 11/18/[address] you li ve. Do you have problems with any of the following? None of the above 11/18/2023 Food Insecurity Answer Date Recorded Within the past 12 months, y ou worried that your food would run out before you got money to buy more: Never True 11/18/2023 Within the past 12 months,th e food you bought just didn't last and you didn't have enough money to get more: Never True Transportation Answer Date Recorded In the past 12 months, has l ack of transportation kept you from medical appts, meetings, work or from getting things needed for daily living? No 11/18/2023 Utilities Answer Date Recorded In the past 12 months, has t he electric, gas, oil or water company threatened to shut off services in your home? No 11/18/2023 Depression Answer Date Recorded Patient Health Questionnaire-2 Score 0 01/24/2024 Sex and Gender Information Value Date Recorded Sex Assigned at Male 07/05/2022 10:15 AM EDT Legal Sex Male 10:15 AM EDT Gender Identity Male 07/05/2022 10:15 AM EDT Sexual Orientation Straight 07/05/2022 10 :15 AM EDT Last Filed Vital Signs Vital Sign Reading Time Taken Comments Blood Pressure 148/94 09/28/2024 11:53 AM EST Pulse 76 09/28/2024 11:53 AM EST Temperature 36.3 ??C (97.3 ??F) 09/11/2024 3:35 PM ES T Respiratory Rate 17 09/11/2024 3:35 PM EST Oxygen Saturation 100% 09/11/2024 3:35 PM EST Inhaled Oxygen Concentration - - Weight 80.6 kg (177 lb 9.6 oz) 09/11/2024 3:35 P M EST Height 167.6 cm (5' 6 ) 04/24/2024 3:20 PM EDT Body Mass Index 28.67 04/24/2024 3:20 PM EDT Plan of Treatment Upcoming Encounters Date Type Department Care Team (Late st Contact Info) Description 12/04/2024 2:15 PM EDT Office Visit [facility] MEDICINE [address] [place] [address] Bushra Segura MD [address] [place] [address] 01/18/2025 2:30 PM EDT Office Visit [facility] OPTOMETRY [address] [place] [address] Elisabeth Whaley, OD [address] [place] [address] Health Maintenance Due Date Last Done Comments CT Colonography 1969 FIT DNA/Cologuard 1969 FIT 1969 FOBT 1969 Sigmoidoscopy 1969 Pneumococcal Vaccine: 50+ Years (1 of 1 - PCV) 2019 DTaP/Tdap/Td Vaccines (2 - Td or Tdap) 05/25/2021 05/25/2011 Diabetes: Hemoglobin A1C 11/10/2024 024, 08/04/2022, 06/26/2021, Additional history exists SDOH Screening 11/17/2024 11/18/2023 Depression Screening 01/23/2025 01/24/2024, 01/24/20 Alcohol/Substance Use Screening 09/11/2025 09/11/2024 Tobacco Screening 09/21/2025 09/21/2024 Lipid Panel 11/10/2028 11/11/2023, 07/08, 06/26/2021 Colonoscopy 01/20/2033 01/20/2023, 08/30/2022 Colorectal Cancer Screening 01/20/2033 RSV Patients and Patients Aged 60 years or older (1 - 1-dose 75+ series) 2044 Zoster Vaccines Completed 03/26/2020, 11/05/2019 Hepatitis B Vaccines Completed 04/24/2024, 10/03/2023, 01/25/2023 HIV Screening Completed 09/03/2024, 07/08, 08/09/2019 Hepatitis C Screening Completed 09/03/2024 , 08/04/2022, 08/09/2019 COVID-19 Vaccine Completed 09/11/2024, , 04/30/2022, Additional history exists Influenza Vaccine Completed 09/11/2024, , 10/05/2022, Additional history exists HIB Vaccines Aged Out No longer eligi ble based on patient's age to complete this topic HPV Vaccines Aged Out No longer eligi ble based on patient's age to complete this topic Hepatitis A Vaccines Aged Out No long er eligible based on patient's age to complete this topic IPV Vaccines Aged Out No longer eligi ble based on patient's age to complete this topic Meningococcal Vaccine Aged Out No lloyd cass eligible based on patient's age to complete this topic RSV under 20 months Aged Out No longe r eligible based on patient's age to complete this topic Rotavirus Vaccines Aged Out No longer eligible based on patient's age to complete this topic Goals Goal Patient Goal Type Associated Problems Recent Progress Patient-Stated? Author Blood Pressure < 140/90 Blood Pressure 148/94( 025 11:53 AM EST) Vladimir Mac, Betty Procedures Procedure Name Priority Date/Time Associated Diagnosis Comments HEPATITIS C ANTIBODY ([place] DPH) Routine 09/03/2024 SYPHILIS ABS ([place] DPH) Routine 09/03/2024 HIV ANTIBODY/ANTIGEN ([place] DPH) Routine 09/03/2024 CHLAMYDIA/GONORRHEA - URINE ([place] DPH) Routine 09/03/2024 CHLAMYDIA/GONORRHEA THROAT SWAB ([place] DPH) Routine 09/03/2024 CULTURE, THROAT Routine 08/30/2024 10:18 AM EST Pharyngitis, unspecified etiology POCT INFLUENZA B (ID NOW RAPID MOLECULAR) Routine 08/30/2024 10:17 AM EST Pharyngitis, unspecified etiology POCT INFLUENZA A (ID NOW RAPID MOLECULAR) Routine 08/30/2024 10:17 AM EST Pharyngitis, unspecified etiology POCT RAPID STREP A Routine 08/30/2024 10 :17 AM EST Pharyngitis, unspecified etiology POCT RAPID COVID ANTIGEN Routine 08/30/2024 10:17 AM EST Pharyngitis, unspecified etiology HEMOGLOBIN A1C Routine 11/11/2023 9:03 AM EST Hypertriglyceridemia LIPID PANEL WITH REFLEX TO DIRECT LDL Routine 11/11/2023 9:03 AM EST Hypertriglyceridemia HM COLONOSCOPY Routine 01/20/2023 3:14 PM EDT from Last 3 Months or Most Recently Relevant to Health Maintenance Results * Chlamydia/Gonorrhea Throat Swab ([place] DPH) (09/03/2024) Chlamydia Throat Swab Negative Gonorrhea Throat Swab Negative Swab 09/03/2024 Result [facility] Provider MD LAB MICROBIOLOGY - GENERA L ORDERABLES Final Result * Chlamydia/Gonorrhea, Urine ([place] DPH) (09/03/2024) Chlamydia, Urine Negative Negative, Indeterminate, None Detected, Invalid, Specimen unsatisfactory for evaluation, Weakly Positive Gonorrhea, Urine Negative Negative, Indeterminate, None Detected, Invalid, Specimen unsatisfactory for evaluation, Weakly Positive Urine 09/03/2024 Result [facility] Provider MD LAB URINE ORDERABLES Peggy l Result * Syphilis Antibodies (DPH) (09/03/2024) Pathologist [facility] Syphilis Abs Nonreactive Borderline, Nonreactive, Weakly Reactive, Inconclusive, Specimen unsatisfactory for evaluation Blood Venous blood specimen / Unknown 09/03/2024 Result [facility] Provider MD LAB BLOOD ORDERABLES Peggy l Result * Hepatitis C Antibody ([place] DPH) (09/03/2024) Pathologist [facility] Hepatitis C Ab Nonreactive Blood 09/03/2024 Result [facility] Provider MD LAB BLOOD ORDERABLES Peggy l Result * HIV Ab/Ag ([place] DPH) (09/03/2024) Pathologist [facility] HIV Ag/Ab Nonreactive Blood 09/03/2024 Result [facility] Provider MD LAB BLOOD ORDERABLES Peggy l Result * Culture, Throat (08/30/2024 10:18 AM EST) Throat Structure of anterior portion of neck / Unknown 08/30/2024 10:18 AM EST 08/30/2024 6:27 PM EST Comment:Throat Narrative [facility] - 09/01/2024 9:27 AM EST Throat Culture No Group A Beta-hemolytic Streptococci isolated. Specimen Source: Throat us Morales De Los Santos MD LAB MICROBIOLOGY - GE NERAL ORDERABLES Final Result Performing Organization Address [facility]/ZIP Co de Phone Number [facility] [address] [place] [phone] * Influenza B (ID NOW Rapid Molecular) (08/30/2024 10:17 AM EST) Influenza B Negative Negative, Indeterminate [facility] Swab 08/30/2024 10:1 7 AM EST us Morales De Los Santos MD POINT OF CARE TEST EN TER/EDIT ORDERABLES Final Result Performing Organization Address [facility] Co de Phone Number [facility] [address] [place] [phone] * Influenza A (ID NOW Rapid Molecular) (08/30/2024 10:17 AM EST) Influenza A Negative Negative, Indeterminate [facility] Swab 08/30/2024 10:1 7 AM EST us Morales De Los Santos MD POINT OF CARE TEST EN TER/EDIT ORDERABLES Final Result Performing Organization Address City/[facility]/ZIP Co de Phone Number [facility] [address] [place] [phone] * POCT Rapid COVID Ag (08/30/2024 10:17 AM EST) Rapid COVID Ag Negative [facility] Swab 08/30/2024 10:1 7 AM EST us Morales De Los Santos MD POINT OF CARE TEST EN TER/EDIT ORDERABLES Final Result Performing Organization Address City/[facility]/ZIP Co de Phone Number [facility] [address] [place] [phone] * POCT rapid strep A manually resulted (08/30/2024 10:17 AM EST) Rapid Strep A Screen Negative Negative, None Detected [facility] Swab 08/30/2024 10:1 7 AM EST us Morales De Los Santos MD POINT OF CARE TEST EN TER/EDIT ORDERABLES Final Result Performing Organization Address City/[facility] Co de Phone Number [facility] [address] [place] [address] [phone] * (ABNORMAL) Lipid Panel with Reflex to Direct LDL (11/11/2023 9:03 AM EST) Triglycerides 352(H) <150 mg/dL [facility] Comment:Desirable Triglyceri de: less than 150 mg/dLBorderline High Triglyceride 150-199 mg/dLHigh Triglyceride: 200-499 mg/dLVery High Triglyceride: greater than or equal to 5OO mg/dL Cholesterol 211(H) <200 mg/dL [facility] Comment:Desirable Cholestero l: less than 200 mg/dLBorderline High Cholesterol: 200-239 mg/dLHigh Cholesterol: greater than 239 mg/dL LDL Cholesterol Calculated 106(H) <100 mg/dL [facility] Comment:Desirable LDL: less than 100 mg/dLNear Optimal/Above Optimal LDL: 110- 129 mg/dLBorderline High LDL: 130-159 mg/dLHigh LDL: 160-189 mg/dLVery High LDL: greater than or equal to 190 mg/dL HDL Cholesterol 35(L) >40 mg/dL [facility] Comment:Desirable HDL: great er than 40 mg/dL Note: This HDL assay may give artificially low results in patients with liver disease. Blood 11/11/2023 9:03 AM EST 11/11/2023 11:29 AM EST us Bushra Segura MD LAB BLOOD ORDERABLES Final Resul t [facility] [address] [place] [phone] * Hemoglobin A1c (11/11/2023 9:03 AM EST) Hemoglobin A1c 5.9 <6.0 % [facility] Comment:Hemoglobin A1C Refer ence Range Adults: 4.8 - 6.0 % Non diabetic: < 6.0 % Goal: < 7.0 %Additional Action Suggested: > 8.0 %Note: Hemoglobin A1c results are invalid for patients with abnormal amounts of HbF. Blood transfusions may impact the HbA1c concentration in the patient sample. Estimated Average Glucose 123 mg/dL [facility] Comment:eAG = Estimated ave rage glucose which is %A1C expressed asaverage glucose, using the formula of the I3O-BdsrypiYuikhom Glucose study (ADAG), Diabetes Care, Vol.31,#8,Apr. 2007 Blood Venous blood specimen / Unknown 11/11/2023 9:03 AM EST 11/11/2023 11:19 AM EST us Bushra Segura MD LAB BLOOD ORDERABLES Final Resul t Performing Organization Address [facility] Co de Phone Number [facility] [address] [place] [phone] * Hm Colonoscopy (01/20/2023 3:14 PM EDT) Colonoscopy Normal Normal us Arnaldo Mehta MD HEALTH MAINTENANCE Final Result from Last 3 Months or Most Recently Relevant to Health Maintenance [place] [address] [place] [address] HMO HSN PARTIAL Care Teams Cabinetmaker Apprentice Relationship Specialty Start Date End Date Bushra Segura MD [address] [place] [phone] PCP - General Family Medicine 08/06/11 Vladimir Domingo, DanialD [address] [place] [phone] Pharmacist Internal Medicine 10/11/22
--- OUTSIDE RECORDS SUMMARY | 2024-10-31 16:47 | XMS_ITS | Clinical Summary ---
Author Organization [facility] Facility Address [address] [place] [address], [place] [address] Care Team Providers Care Knocker Off Name Role Phone Bushra Segura MD Primary Care Provider [phone] Allergies Active Allergy Reactions Criticality Noted Date Comments Nsaids 08/30/2022 CKD Medications SUMAtriptan (IMITREX) 100 MG tablet Take 1 tablet by mouth 1 (one) time each day Active omeprazole (PriLOSEC) [address] capsule Take 1 capsule by mouth 1 (one) time each day Active fenofibrate micronized (LOFIBRA) 134 MG capsule Take 1 capsule by mouth 1 (one) time each day Active cholecalciferol (VITAMIN D-3) 25 MCG (1000 UT) capsule Take 1 capsule by mouth 1 (one) time each day Active amLODIPine (NORVASC) 5 MG tablet Take 1.5 tablets by mouth 1 (one) time each day Active Active Problems Problem Noted Date Diagnosed Date Erythrocytosis 10/05/2022 07/11/2023 Overview (07/11/2023): Last Assessment & Plan: Patient was referred to [facility]; Seen by [facility] on 08/18/22 -Hct 47.5 on 08/18/22, 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 -Pt encouraged to increase water intake -08/18/22 Erythropoietin level 8.5 mIU/mL (normal); lactate dehydrogenase 143 U/L Follow-up in 2 months Tubular adenoma of colon 08/30/2022 023 Overview (07/11/2023): Last Assessment & Plan: -Colonoscopy by Dr. Mehta, [facility], on 05/27/20, tubular adenoma -Recommended to repeat in 5 years Prediabetes 08/30/2022 07/11/2023 Overview (07/11/2023): Last Assessment & Plan: -08/04/22 A1C 5.7% -Continue working on lifestyle modification -Diabetes screen q6-12 mo Hypertriglyceridemia 08/30/2022 07/11/2023 Overview (07/11/2023): Last Assessment & Plan: - 08/04/22 TC 146; TG 106; HDL 38; LDL 88 - Current medication: fenofibrate 134 mg daily - Not in a statin-benefit group, but consider switching fenofibrate to statin in near future as his ASCVD risk increases - Continue working on lifestyle modification. - Check fasting lipid profile annually Chronic esophagitis 08/30/2022 07/11/2023 Overview (07/11/2023): Last Assessment & Plan: Diagnosed on EGD on 05/23/[address] Arnaldo Mehta. No H.pylori present. No intestinal metaplasia seen. Stage 3a chronic kidney disease 07/06/2022 Chronic kidney disease stage 3 01/30/2021 Hypertensive renal disease 01/30/2021 Allergic rhinitis 02/24/2016 07/11/2023 Overview (07/11/2023): Last Assessment & Plan: Works in [employer] and possibly seasonal Vitamin D deficiency 08/09/2012 07/11/2023 Overview (07/11/2023): Last Assessment & Plan: Labs: 06/26/21 Vitamin D was 31. -Continue Cholecalciferol for supplement Migraine 08/09/2012 07/11/2023 Overview (07/11/2023): Last Assessment & Plan: Controlled, has 1 migraine GRAY per month No prophylaxis. History of cholecystectomy 08/09/201207/11 Gastroesophageal reflux disease 08/09/2012 07/11/2023 Overview (07/11/2023): Last Assessment & Plan: Continue Omeprazole 20mg qhs Resolved Problems Problem Noted Date Diagnosed Date Resolved Date Essential hypertension 01/30/202104/14 Immunizations Name Administration Dates Next Due Hepatitis B 01/25/2023 Influenza Split 06/20/2013,08/09/2012 Influenza, Quadrivalent, Pre servative Free 10/05/2022,06/22/2021,07/24/2019,2017,06/13/2017 Influenza, Quadrivalent, Wit h Preservative 06/01/2016,05/19/2015 Influenza, Unspecified 09/18/2014,05/25/2011 Moderna SARS-COV-2 08/04/2021,12/15/2020, 021 Pfizer SARS-COV-2 10/05/2022,04/30/2022 Shingrix 03/26/2020,11/05/2019 Tdap 05/25/2011 Family History Relation Status Comments Father Unknown Mother Unknown Social History Tobacco Use Types Packs/Day Years Used Date Smoking Tobacco: Never Tobacco Cessation:Counseling Given: Not Answered Alcohol Use Standard Drinks/Week Comments No 0 (1 standard drink = 0.6 oz pur e alcohol) Sex and Gender Information Value Date Recorded Sex Assigned at Not on file Legal Sex Male 5:09 PM EST Gender Identity Not on file Sexual Orientation Not on file Last Filed Vital Signs Vital Sign Reading Time Taken Comments Blood Pressure 146/85 07/06/2022 2:28 PM EDT Pulse 74 07/06/2022 2:28 PM EDT Temperature - - Respiratory Rate - - Oxygen Saturation 98% 07/06/2022 2:28 PM EDT Inhaled Oxygen Concentration - - Weight 79.4 kg (175 lb) 07/06/2022 2:28 PM EDT Height 152.4 cm (5') 09/25/2019 12:00 PM EST Body Mass Index 34.18 09/25/2019 12:00 PM EST Plan of Treatment Health Maintenance Due Date Last Done Comments Pneumococcal Vaccine: Pediat rics (0 to 5 Years) and At-Risk Patients (6 to 64 Years) (1 of 2 - PCV) 1975 Hepatitis B Vaccine (1 of 3 - 19+ 3-dose series) 1988 01/25/2023 Colorectal Cancer Screening: Annual FOBT 2018 Colorectal Cancer Screening: Colonoscopy 2018 Colorectal Cancer Screening: Sigmoidoscopy 2018 Influenza Vaccine (#1) 2024 3, 06/22/2021, 07/24/2019, Additional history exists Insurance [place] Care Teams Knocker Off Relationship Specialty Start Date End Date Bushra Segura MD PCP - General 09/15/20
--- OUTSIDE RECORDS SUMMARY | 2024-10-31 16:47 | XMS_ITS | Encounter Summary ---
Author Organization [employer] Address [address] [facility] [address] [place] [address] Care Team Providers Care Supervisor Tellers Name Role Phone Bushra Segura MD Primary Care Provider [phone] Vladimir Domingo PharmD Unavailable [phone] Encounter Details Date Type Department Care Team ([facility] st Contact Info) Description 08/30/2022 Abstract [facility] MEDICINE [address] [place], [place] [phone] Bushra Segura MD [address] [place], [place] [phone] Primary hypertension (Primary Dx); Tubular adenoma of colon; Stage 3a chronic kidney disease (CMS/HCC) Social History Tobacco Use Types Packs/Day Years Used Date Smoking Tobacco: Never Assessed Sex and Gender Information Value Date Recorded Sex Assigned at Male 07/05/2022 10:15 AM EDT Legal Sex Male 10:15 AM EDT Gender Identity Male 07/05/2022 10:15 AM EDT Sexual Orientation Straight 07/05/2022 10 :15 AM EDT documented as of this encounter Miscellaneous Notes * Assessment & Plan Note - Bushra Segura MD - 08/30/2022 7:16 AM ESTAssociated Problem(s): Hypertension -Goal BP < 140/90 per JNC-8, < 130/80 per ACC/AHA guideline -Suboptimal control in Jun - Jul 2022 -Co-managed with [facility] pharmacist / CDTM and manual plate filler -Continue amlodipine 10 mg daily. -Continue checking BP at home. Pt declined 24-hour BP monitoring by manual plate filler. -Continue Working on lifestyle modifications. -Treatment HX: --HCTZ -> hypokalemia; lisinopril was discontinued once due to ESE and discontinued again --Metoprolol was self-disconitnued due to concern of side effects --losartan 12.5 mg was self-discontinued since pt had not been adherent and was found to have goal BP without it * Assessment & Plan Note - Bushra Segura MD - 08/30/2022 7:14 AM ESTAssociated Problem(s): CKD (chronic kidney disease) stage 3, GFR 30-59 ml/min ([facility]) -Co-managed with manual plate filler, Dr. Galvez, last seen on 07/06/22 -Optimize BP control -Avoid nephrotoxic drugs * Assessment & Plan Note - Bushra Segura MD - 08/30/2022 7:13 AM ESTAssociated Problem(s): Tubular adenoma of colon -Colonoscopy by Dr. Mehta, [facility], on 05/27/20, tubular adenoma -Recommended to repeat in 5 years documented in this encounter Plan of Treatment Upcoming Encounters Date Type Department Care Team (Late st Contact Info) Description 12/04/2024 2:15 PM EDT Office Visit [facility] MEDICINE [address] [place] [address] Bushra Segura MD [address] [place] [address] 01/18/2025 2:30 PM EDT Office Visit [facility] OPTOMETRY [address] [place] [address] Judd, Elisabeth, OD [address] [place] [address] documented as of this encounter Procedures Procedure Name Priority Date/Time Associated Diagnosis Comments COLONOSCOPY Routine 08/30/2022 documented in this encounter Results * Colonoscopy (08/30/2022) Colonoscopy 05/27/2020 Comment:Tubular adenoma Historical Provider HEALTH MAINTENANCE Final Result documented in this encounter Visit Diagnoses Diagnosis Primary hypertension- Primary Unspecified essential hypertension Tubular adenoma of colon Benign neoplasm of colon Stage 3a chronic kidney disease (CMS/HCC) documented in this encounter Care Teams Supervisor Tellers Relationship Specialty Start Date End Date Bushra Segura MD [address] [place], [place] [phone] PCP - General Family Medicine 08/06/11 Vladimir Domingo, DanialD [address] [place] [address] Pharmacist Internal Medicine 10/11/22 documented as of this encounter
--- OUTSIDE RECORDS SUMMARY | 2024-10-31 16:47 | XMS_ITS | Encounter Summary ---
Author Organization [employer] [facility] Address [address] [facility] [address] [place] [address] Care Team Providers Care Rn Psychiatric Name Role Phone Bushra Segura MD Primary Care Provider [phone] Vladimir Domingo PharmD Unavailable [phone] Encounter Details Date Type Department Care Team (Latest Contact Info) Description 10/01/[address] [facility] CONVERSIONS Dental, Provider, DDS Social History [...] Description 12/04/2024 2:15 PM EDT Office Visit [facility] MEDICINE [address] [place] [address] Bushra Segura MD [address] [place] [address] 01/18/2025 2:30 PM EDT Office Visit [facility] OPTOMETRY [address] [place] [address] Elisabeth Whaley OD [address] [place] [address] documented as of this encounter Visit Diagnoses Not on filedocumented in this encounter Care Teams Rn Psychiatric Relationship Specialty Start Date End Date Bushra Segura MD [address] [place] [address] PCP - General Family Medicine 08/06/11 Vladimir Domingo, DanialD [address] [place] [address] Pharmacist Internal Medicine 10/11/22 documented as of this encounter
--- OUTSIDE RECORDS SUMMARY | 2024-10-31 16:47 | XMS_ITS | Encounter Summary ---
Author Organization [facility] Address [address] [facility] 7t [place] [address] Care Team Providers Care Roving Can Tender Name Role Phone Bushra Segura MD Primary Care Provider [phone] Vladimir Domingo PharmD Unavailable [phone] Reason for Referral * Consultation (Routine) - Authorized Specialty Diagnoses / Procedures Referred By Contac t Referred To Contact Pharmacy Diagnoses Hypertension, unspecified type Bushra Segura MD [address] [place] [address] Phone: tel: fax: Referral ID Status Reason Start Date Expiration Date Visits Requested Visits Authorized [id number] Authorized Consult and Treat 09/14/2024 09/14/2025 6 6 Encounter Details Date Type Department Care Team (Late st Contact Info) Description 09/14/2024 Orders Only [facility] MEDICINE [address] [place] [address] [phone] Bushra Segura MD [address] [place], [place] [phone] Hypertension, unspecified type (Primary Dx) Social History Tobacco Use Types Packs/Day Years [...] Description 12/04/2024 2:15 PM EDT Office Visit [facility] MEDICINE [address] [place] [address] Bushra Segura MD [address] [place] [address] 01/18/2025 2:30 PM EDT Office Visit [facility] OPTOMETRY [address] [place] [address] Elisabeth Whaley, EZEKIEL [address] [place] [address] Scheduled Referrals Name Type Priority Associated Diagnoses Orde r Schedule Referral to Pharmacy CDTM Outpatient Referral Routine Hypertension, unspecified type Ordered: 09/14/2024 documented as of this encounter Goals Goal Patient Goal Type Associated Problems Recent Progress Patient-Stated? Author Blood Pressure < 140/90 Blood Pressure 148/94( 025 11:53 AM EST) No Vladimir Domingo, PharmD documented as of this encounter Visit Diagnoses Diagnosis Hypertension, unspecified type- Primary documented in this encounter Additional Health Concerns Assessment Noted Time PHQ-9 Depression Total Score: 0 01/24/20 24 3:36 PM EDT documented as of this encounter Care Teams Roving Can Tender Relationship Specialty Start Date End Date Bushra Segura MD [address] [place] [address] PCP - General Family Medicine 08/06/11 Vladimir Domingo, PharmD [address] [place] [address] Pharmacist Internal Medicine 10/11/22 documented as of this encounter
--- OUTSIDE RECORDS SUMMARY | 2024-10-31 16:47 | XMS_ITS | Encounter Summary ---
Author Organization [employer] Address [address] [facility] [address] [place] [address] Care Team Providers Care Histology Teacher Name Role Phone Bushra Segura MD Primary Care Provider [phone] Vladimir Domingo PharmD Unavailable [phone] Reason for Visit * Reason Onset Date Comments Nurse Triage 04/16/2024 Encounter Details Date Type Department Care Team ([facility] st Contact Info) Description 04/16/2024 Telephone [facility] MEDICINE [address] [place], [place] [phone] Bushra Segura MD [address] [place], [place] [phone] Nurse Triage Social History Tobacco Use Types Packs/Day Years [...] encounter Miscellaneous Notes * Telephone Encounter - Lucero Gerard RN - 04/16/2024 11:33 AM EDT Called pt. Via [employer] historic interpreter [id number] Jovany. Pt. States that he woke up 2 days ago with rightfoot pain. Right foot ankle pain , swelling and redness with blood pocket on ankle. pt. Was Unable to walk. Pt was treated by ED provider taking out blood from his ankle area at [facility] ED and then pt. Was able to walk. Pt. States that ankle was swollen and painful again so he went Yesterday 04/15/24 back to [facility] ED for foot pain, swelling and blood in skin. Pt. States that MRI's, Xrays, and blood testing taken. Pt states that he also had blood taken out of his foot as well. Pt. Was referred to a pricing specialist. Pt. Went to [facility] specialist today at [address] Through [facility] to book an appt. As he wa referred there through ED but, pt. Was told that he had to wait for them to call him tobook an appt. Pt. Also told to book fu appt. With provider at [facility] Appt booked for 04/17/[address] Akers. Pt. States no fever today, right foot slightly swollen and can walk on foot today.Will request notes from [facility] with clinical coordinators to have notes in chart from [facility] ED visits from 04/09/24-04/16/24 to be put into pt. Chart. Protocol Used: Ankle Pain (Adult) Protocol-Based Disposition: See in Office 04/17/24 11am.and if ankle swells again pt. Will go to ED Video visit not offered Positive Triage Questions: * Redness of the skin and no fever * Moderate pain (e.g., interferes with normal activities, limping) and present > 3 days * Swollen joint with no fever or redness * Patient wants to be seen * All higher-acuity triage questions were negative Care Advice Discussed: * Pain Medicines * Telephone Encounter - Rorysanya Wesley Payan - 04/16/2024 11:05 AM EDT Symptom: Leg Swelling - Not From Injury Outcome: Schedule an urgent appointment (within 1 hour) or talk to a nurse or provider soon Reason: Severe leg pain now The caller accepted this outcome documented in this encounter Plan of Treatment Upcoming Encounters Date Type Department Care Team (Late st Contact Info) Description 12/04/2024 2:15 PM EDT Office Visit [facility] MEDICINE [address] [place] [address] Bushra Segura MD [address] [place] [address] 01/18/2025 2:30 PM EDT Office Visit [facility] OPTOMETRY [address] [place] [address] Elisabeth Whaley, OD [address] [place] [address] documented as of this encounter Goals Goal Patient Goal Type Associated Problems Recent Progress Patient-Stated? Author Blood Pressure < 140/90 Blood Pressure 148/94( 025 11:53 AM EST) Vladimir Mac, PharmD documented as of this encounter Visit Diagnoses Not on filedocumented in this encounter Additional Health Concerns Assessment Noted Time PHQ-9 Depression Total Score: 0 01/24/20 24 3:36 PM EDT documented as of this encounter Care Teams Histology Teacher Relationship Specialty Start Date End Date Bushra Segura MD [address] [place] [address] PCP - General Family Medicine 08/06/11 Vladimir Domingo, DanialD [address] [place] [address] Pharmacist Internal Medicine 10/11/22 documented as of this encounter
--- OUTSIDE RECORDS SUMMARY | 2024-10-31 16:47 | XMS_ITS | Encounter Summary ---
Author Organization [employer] Address [address] [place] [address] Care Team Providers Care Search Engine Optimization Strategist Name Role Phone Bushra Segura MD Primary Care Provider [phone] Vladimir Domingo PharmD Unavailable [phone] Encounter Details Date Type Department Care Team ([facility] Contact Info) Description 10/29/2024 Telephone [facility] MEDICINE [address] [place], [place] [phone] Bushra Segura MD [address] [place], [place] [phone] Social History Tobacco Use Types Packs/Day Years [...] encounter Miscellaneous Notes * Telephone Encounter - Tad Garcia - 10/29/2024 10:11 AM EST Pharmacy [facility] attempted outreach call on 10/29/24 for CDTM - Hypertension appointment; however, unable to reach patient. LVM for patient to contact Tad Garcia at [phone]. documented in this encounter Plan of Treatment Upcoming Encounters Date Type Department Care Team (Late st Contact Info) Description 12/04/2024 2:15 PM EDT Office Visit [facility] MEDICINE [address] [place] [address] Bushra Segura MD [address] [place] [address] 01/18/2025 2:30 PM EDT Office Visit [facility] OPTOMETRY [address] [place] [address] Elisabeth Whaley, OD [address] [place] [address] documented as of this encounter Goals Goal Patient Goal Type Associated Problems Recent Progress Patient-Stated? Author Blood Pressure < 140/90 Blood Pressure 148/94( 025 11:53 AM EST) No Vladimir Domingo, DanialD documented as of this encounter Visit Diagnoses Not on filedocumented in this encounter Additional Health Concerns Assessment Noted Time PHQ-9 Depression Total Score: 0 01/24/20 24 3:36 PM EDT documented as of this encounter Care Teams Search Engine Optimization Strategist Relationship Specialty Start Date End Date Bushra Segura MD [address] [place] [address] PCP - General Family Medicine 08/06/11 Vladimir Domingo, DanialD [address] [place] [address] Pharmacist Internal Medicine 10/11/22 documented as of this encounter
--- OUTSIDE RECORDS SUMMARY | 2024-10-31 16:47 | XMS_ITS | Encounter Summary ---
Author Organization [employer] Address [address] [facility] [address] [address] [place] [address] Care Team Providers Care R D Intern Name Role Phone Bushra Segura MD Primary Care Provider [phone] Vladimir Domingo PharmD Unavailable [phone] Reason for Visit * Reason Onset Date Comments Appointment Request 10/26/2024 Encounter Details Date Type Department Care Team ([facility] st Contact Info) Description 10/26/2024 Telephone [facility] MEDICINE [address] [place], [place] [phone] Bushra Segura MD [address] [place], [place] [phone] Appointment Request Social History Tobacco Use Types Packs/Day Years [...] encounter Miscellaneous Notes * Telephone Encounter - Susie Herzog - 10/26/2024 2:27 PM EST Tc from pt requesting to r/s televisit. documented in this encounter Plan of Treatment Upcoming Encounters Date Type Department Care Team (Late st Contact Info) Description 12/04/2024 2:15 PM EDT Office Visit [facility] MEDICINE [address] [place] [address] Bushra Segura MD [address] [place] [address] 01/18/2025 2:30 PM EDT Office Visit [facility] OPTOMETRY [address] [place] [address] Elisabeth Whaley, OD [address] [place] [address] documented as of this encounter Goals Goal [...] documented as of this encounter Care Teams R D Intern Relationship Specialty Start Date End Date Bushra Segura MD [address] [place] [address] PCP - General Family Medicine 08/06/11 Vladimir Domingo, DanialD [address] [place] [address] Pharmacist Internal Medicine 10/11/22 documented as of this encounter
== END 2024-10-31 15:30 | disposition home or self-care (01) ==
PROVIDERS: PCP Family Medicine; Visit Provider Surgery
DX: K64.8 Other hemorrhoids (principal)
CPT/HCPCS: 46600; 99203

== ENCOUNTER → 2024-10-31 13:40 | Outpatient (BNVA) | payer BC, SELFPAY | PROVIDERS: PCP Family Medicine; Visit Provider Surgery | DX: K64.8 Other hemorrhoids (principal) | CPT/HCPCS: 46600 ==

== ENCOUNTER 2024-11-30 16:21 | Outpatient (REF) | payer BC, SELFPAY ==
[2024-12-01 09:43] LABS: Adenovirus PCR Not Detected (Not Detect.); Bordetella parapertussis PCR Not Detected (Not Detect.); Bordetella pertussis PCR Not Detected (Not Detect.); Chlamydia pneumoniae PCR Not Detected (Not Detect.); Coronavirus 229E PCR Not Detected (Not Detect.); Coronavirus HKU1 PCR Not Detected (Not Detect.); Coronavirus NL63 PCR Not Detected (Not Detect.); Coronavirus OC43 PCR Not Detected (Not Detect.); Human metapneumovirus PCR Not Detected (Not Detect.); Influenza A PCR Not Detected (Not Detect.); Influenza B PCR Not Detected (Not Detect.); Mycoplasma pneumoniae PCR Not Detected (Not Detect.); Parainfluenza 1 PCR Not Detected (Not Detect.); Parainfluenza 2 PCR Not Detected (Not Detect.); Parainfluenza 3 PCR Not Detected (Not Detect.); Parainfluenza 4 PCR Not Detected (Not Detect.); RSV PCR Not Detected (Not Detect.); Rhino/Enterovirus PCR Not Detected (Not Detect.)
[2024-12-01 09:59] LABS: Influenza A H1 PCR Not Detected (Not Detect.); Influenza A H1-2009 PCR Not Detected (Not Detect.); Influenza A H3 PCR Not Detected (Not Detect.); SARS-CoV-2 PCR Not Detected (Not Detect.)
== END 2024-11-30 16:22 | disposition home or self-care (01) ==
LOC: HO.HHCLNP 16:21
PROVIDERS: Visit Provider Family Medicine
DX: J06.9 Acute upper respiratory infection, unspecified (principal)
CPT/HCPCS: 87633

== ENCOUNTER → 2024-12-21 11:16 | Outpatient (BNV) | payer BC, SELFPAY | PROVIDERS: PCP Family Medicine; Visit Provider Surgery | DX: K64.8 Other hemorrhoids (principal) | CPT/HCPCS: 46255 ==

== ENCOUNTER → 2024-12-21 11:16 | Day surgery (SDC) | payer BC, SELFPAY ==
--- NOTE | 2024-12-05 13:45 | HO.ANESPROP2 ---
Documented by User: Yuni Santiago NP 12/20/24 10:34 HPI - Anesthesia Eval Consult details Narrative: 54yo M for EUA, Hemorrhoidectomy PMFSH Active Problems Active Problems: All Active Problems Hemorrhoids with complication (Acute) Polycythemia (Chronic) Tubular adenoma of colon (Acute) Benign fundic gland polyps of stomach (Acute) Diverticulosis of colon (Acute) Hemorrhoids (Acute) Acid reflux (Acute) Past Medical History Medical History Hemorrhoids with complication Allergic rhinitis Chronic gastritis without bleeding Chronic esophagitis Tubular adenoma Hypertension (~10/10/12) Impaired fasting glucose (~08/09/12) Chronic kidney disease (~04/24/14) Migraine (~08/09/12) GERD (gastroesophageal reflux disease) (~08/09/12) Transaminitis (~08/09/12) Vitamin D deficiency (~08/09/12) Hypertriglyceridemia (~08/09/12) Diverticulosis of colon Hemorrhoids Acid reflux Family History Family History Sister Diabetes Surgical History Surgical History H/O hemorrhoidectomy (~2006) Hx laparoscopic cholecystectomy (~12/09/11) S/P cholecystectomy (~08/09/12) Social History Social History Household Members: Friend(s) Household Members Other:: Housing: House Alcohol intake: never Patient Tobacco Use Status: Never used Tobacco Have you been hit, kicked, punched, or otherwise hurt by someone within the past year? If so, by whom?: No Advance Directives: No Advance Directives Information Provided: Yes service: No Current occupational status: employed Current occupation: security field supervisor Meds Allergies Allergy/AdvReac Type Severity Reaction Status Date / Time No Known Allergies Allergy Verified 10/31/24 13:49 [No Known Allergies*] Home Medications ?Medication ?Instructions ?Recorded ?Confirmed ?Last Taken ?Type fenofibrate micronized 134 mg 134 mg PO DAILY 06/18/20 12/21/24 12/20/24 History capsule amlodipine 10 mg tablet 1 tab PO DAILY 08/17/22 12/21/24 12/21/24 History cholecalciferol (vitamin D3) 50 1 tab PO DAILY 08/17/22 12/21/24 12/20/24 History mcg (2,000 unit) tablet losartan 25 mg tablet 1 tab PO DAILY 08/17/22 12/21/24 12/20/24 History atorvastatin 10 mg tablet 10 mg PO DAILY 10/31/24 12/21/24 12/20/24 History Assessment and Plan Assessment Anesthesia Assessment: Chart Reviewed Documented by User: Nupur Randhawa MD 12/21/24 14:10 PMFSH Past Medical History Medical History Hemorrhoids with complication Allergic rhinitis Chronic gastritis without bleeding Chronic esophagitis Tubular adenoma Hypertension (~10/10/12) Impaired fasting glucose (~08/09/12) Chronic kidney disease (~04/24/14) Migraine (~08/09/12) GERD (gastroesophageal reflux disease) (~08/09/12) Transaminitis (~08/09/12) Vitamin D deficiency (~08/09/12) Hypertriglyceridemia (~08/09/12) Diverticulosis of colon Hemorrhoids Acid reflux Family History Family History Sister Diabetes Family history of problems with anesthesia: No Surgical History Surgical History H/O hemorrhoidectomy (~2006) Hx laparoscopic cholecystectomy (~12/09/11) S/P cholecystectomy (~08/09/12) History of Problems with Anesthesia: No Social History Social History Household Members: Friend(s) Household Members Other:: Housing: House Alcohol intake: never Patient Tobacco Use Status: Never used Tobacco Have you been hit, kicked, punched, or otherwise hurt by someone within the past year? If so, by whom?: No Advance Directives: No Advance Directives Information Provided: Yes service: No Current occupational status: employed Current occupation: security field supervisor Meds Allergies Allergy/AdvReac Type Severity Reaction Status Date / Time No Known Allergies Allergy Verified 10/31/24 13:49 [No Known Allergies*] Home Medications ?Medication ?Instructions ?Recorded ?Confirmed ?Last Taken ?Type fenofibrate micronized 134 mg 134 mg PO DAILY 06/18/20 12/21/24 12/20/24 History capsule amlodipine 10 mg tablet 1 tab PO DAILY 08/17/22 12/21/24 12/21/24 History cholecalciferol (vitamin D3) 50 1 tab PO DAILY 08/17/22 12/21/24 12/20/24 History mcg (2,000 unit) tablet losartan 25 mg tablet 1 tab PO DAILY 08/17/22 12/21/24 12/20/24 History atorvastatin 10 mg tablet 10 mg PO DAILY 10/31/24 12/21/24 12/20/24 History Exam Airway Mallampati Class: II TM Dist: >3cm Neck ROM: Full Heart: rrr Lungs: cta Assessment and Plan Assessment Anesthesia Assessment: Anesthesia Plan Discussed Final Anesthetic Review Family History of Problems with Anesthesia: No History of Problems with Anesthesia: No NPO: Yes ASA Class: II and Emergency Final Preanesthetic Review: No Changes in Pt Med Stat, Meds/Allgs Chart Reviewed, Consent Obtained/Reviewed and Anes Risks/Benef Reviewed Patient Risk: Intermediate Procedure Risk: Low Anesthetic Plan Anesthetic Plan: GA Disposition: Standard PACU
[2024-12-21] VITALS (8 sets, daily range): BP systolic 133–149; BP diastolic 93–103; PULSE 67–79; RESP 16–18; TEMP 36.6–36.9; O2SAT 96–98; BMI 26.0
--- NOTE | 2024-12-21 11:41 | PC.NURSE ---
pt fell 1 week agoat workdenies loc bruised noted to buttocks back
[2024-12-21] MEDS: Lactated Ringers 1,000 ML 100 ML IVCONT (11:47)
--- NOTE | 2024-12-21 14:03 | MHC.SHP ---
Pre-Procedural Eval Section A - 24 Hr Update-Section A only Date of Service: 12/21/24 Section B - Complete if H&P > 30 days Chief Complaint: Other hemorrhoids Details of Present Illness: has had pain and bleeding with hemorrhoids Relevant Family History (Specify if Yes): No Relevant Social History: None Present Medications: see Short Stay Collaborative assessment Medical History: Significant History (GERD, hx of polycythemia) Allergies: Allergies Allergy/AdvReac Type Severity Reaction Status Date / Time No Known Allergies Allergy Verified 10/31/24 13:49 [No Known Allergies*] Review of Systems Sugical H&P ROS: Negative: Constitution, Cardiovascular and Respiratory Exam Surgical H&P Exam: Normal: Heart, Normal: Lungs and Normal: Abdomen Exam Comment: mixed hemorrhoids Plan Diagnosis/Plan: Unchanged I have reviewed the history and physical and performed a pertinent physical examination on my patient. No changes have occurred unless specified. Time Spent With Patient Time: Total time managing care of this patient today ____ minutes.
--- NOTE | 2024-12-21 14:47 | W.PM.OPN ---
Operative Note Operative Note Date of Service: 12/21/24 Narrative: Preop diagnosis: Internal and external hemorrhoids with pain and bleeding Postop diagnosis: The same Procedure: Exam under anesthesia hemorrhoidectomy x1 column Surgeon: Gopal Waddell MD The patient is a 54-year-old male with a long history of pain and bleeding with hemorrhoids. He was note of 1 large mixed hemorrhoidal columns posteriorly and he wanted to proceed with hemorrhoidectomy. He understood the technique of hemorrhoidectomy as well as the risks, benefits, and alternatives He was brought to the operating room and placed in prone rudy-knife position under general anesthesia via laryngeal mask airway. The buttocks were retracted with wide tape laterally. The perianal area was prepped and draped usual sterile fashion. A surgical time-out was done the patient received Cefotan 2 g IV preoperatively There was note of an external hemorrhoid, moderate-sized on the posterior, right side. I inserted the Rufus Edward retractor. I examined the anal canal circumferentially. Again this hemorrhoidal column was seen as a mix of internal external. There were no other lesions. There was no fissure or ulceration I applied a Zazueta grasper at this hemorrhoidal column to retract this out in the field. I made a woqiwt-cb-noptz stitch at the pedicle. This was with a chromic 3-0 stitch. I made an incision around this hemorrhoidal column to the perianal skin with a blade 15. I excised this hemorrhoidal column above the plane of the sphincters along this incision using scissors. I closed the incision with a running chromic 3-0 stitch. I placed additional iaokda-bc-dkesr sutures for oozing areas Once hemostasis was confirmed, I infiltrated the perianal area with Marcaine 0.5% for postop analgesia and the procedure was completed The patient tolerated procedure well. There were no immediate complications. Initial and final counts of sponges and instruments were correct. Blood loss was 25 cc. The patient was extubated without difficulty and transferred to the recovery room with stable vital signs.
== END | disposition home or self-care (01) ==
PROVIDERS: PCP Family Medicine; Visit Provider Surgery
PROC: (CPT 46255; principal; 2024-12-21 14:20)
DX: K64.8 Other hemorrhoids (principal); K64.4 Residual hemorrhoidal skin tags; K29.50 Unspecified chronic gastritis without bleeding; K20.80 Other esophagitis without bleeding; K21.9 Gastro-esophageal reflux disease without esophagitis; K57.30 Diverticulosis of large intestine without perforation or abscess without bleeding; I12.9 Hypertensive chronic kidney disease with stage 1 through stage 4 chronic kidney disease, or unspecified chronic kidney disease; N18.9 Chronic kidney disease, unspecified; R73.01 Impaired fasting glucose; E78.1 Pure hyperglyceridemia; Z86.0101 Personal history of adenomatous and serrated colon polyps; Z79.1 Long term (current) use of non-steroidal anti-inflammatories (NSAID); Z79.899 Other long term (current) drug therapy; Z90.49 Acquired absence of other specified parts of digestive tract
CPT/HCPCS: 46255; 88304; J2003; J2250; J2704; J2795; J3010

== ENCOUNTER 2025-01-01 11:07 | Outpatient (AMB) | payer BC, SELFPAY ==
--- NOTE | 2025-01-01 11:15 | MHC.OFFVIS ---
Vital Signs 01/01/25 11:24 Weight 164 lb BP 148/92 H Blood Pressure Location Rt brachial Position Sitting Pulse 65 Intake Visit Reasons: s/p hemorrhoidectomy Intake Note: Patient here s/p hemorrhoidectomy x1 column. 0. Patient c/o: reports pain at 5 of 10. Experienced dropplets of blood after BM. Taking Colace. Surgery: 12-21-2024. Field Assembly Supervisor Required: Yes Accompanied by: Self / Same As Patient Allergies No Known Allergies [No Known Allergies*] Allergy (Verified 01/01/25 11:23) HPI HPI s/p hemorrhoidectomy: Details: He underwent hemorrhoidectomy x1 column last 12/21/2024. He tolerated the procedure well she currently denies significant complaints. [facility] Medical History Hemorrhoids with complication Allergic rhinitis Chronic gastritis without bleeding Chronic esophagitis Tubular adenoma Hypertension (~10/10/12) Impaired fasting glucose (~08/09/12) Chronic kidney disease (~04/24/14) Migraine (~08/09/12) GERD (gastroesophageal reflux disease) (~08/09/12) Transaminitis (~08/09/12) Vitamin D deficiency (~08/09/12) Hypertriglyceridemia (~08/09/12) Diverticulosis of colon Hemorrhoids Acid reflux Surgical History H/O hemorrhoidectomy (~2006) Hx laparoscopic cholecystectomy (~12/09/11) S/P cholecystectomy (~08/09/12) Family History Sister Diabetes Social History Household Members: Friend(s) Household Members Other:: Housing: House Alcohol intake: never Patient Tobacco Use Status: Never used Tobacco service: No Current occupational status: employed Current occupation: security alarm technician Review of Systems Const Denies chills and Denies fatigue Card Denies chest pain GI Denies hematochezia Endo Denies fatigue Physical Exam Vital Signs: Last Vital Signs Pulse 65 01/01/25 11:24 BP 148/92 H 01/01/25 11:24 Const General: comfortable and no acute distress GI Other: Rectal exam - hemorrhoidectomy site healing well, not infected, induration, discharge Assessment & Plan Assessment & Plan (1) Hemorrhoids with complication: Code(s): K64.8 - Other hemorrhoids Category: Medical Plan: Status post hemorrhoidectomy. He is doing very well overall. The hemorrhoidectomy site is healing well. I advised him to continue to do hot Sitz baths. He was advised on avoiding straining and constipation. I will see him for another wound check in about a month. Coding Level of Care Code Global (51804) Diagnoses Hemorrhoids with complication K64.8
[2025-01-01 11:24] VITALS: BP 148/92; PULSE 65
--- OUTSIDE RECORDS SUMMARY | 2025-01-01 12:59 | XMS_ITS | Encounter Summary ---
Author Organization [employer] [facility] Address [address] [facility] [address] [place] [address] Care Team Providers Care Retort Or Condenser Press Operator Name Role Phone Bushra Segura MD Primary Care Provider [phone] Vladimir Domingo PharmD Unavailable [phone] Encounter Details Date Type Department Care Team (Latest Contact Info) Description 10/01/2021 Abstract [facility] CONVERSIONS Dental, Provider, DDS Social History [...] Care Team (Late st Contact Info) Description 01/18/2025 3:00 PM EDT Office Visit [facility] OPTOMETRY [address] [place] [address] Elisabeth Whaley, OD [address] [place] [address] documented as of this encounter Visit Diagnoses Not on filedocumented in this encounter Care Teams Retort Or Condenser Press Operator Relationship Specialty Start Date End Date Bushra Segura MD [address] [place] [address] PCP - General Family Medicine 08/06/11 Vladimir Domingo, PharmD [address] [place] [address] Pharmacist Internal Medicine 10/11/22 documented as of this encounter
--- OUTSIDE RECORDS SUMMARY | 2025-01-01 12:59 | XMS_ITS | Encounter Summary ---
Author Organization [employer] Address [address] [place] [address] Care Team Providers Care Public Relations Director Name Role Phone Bushra Segura MD Primary Care Provider [phone] Vladimir Domingo PharmD Unavailable [phone] Reason for Visit * Reason Onset Date Comments Appointment Request 10/26/2024 Encounter Details Date Type Department Care Team ([facility] st Contact Info) Description 10/26/2024 Telephone [facility] MEDICINE [address] [place], [place] [phone] Bushra Segura MD [address] [place], [place] [address] Appointment Request Social History Tobacco Use Types [...] Description 01/18/2025 3:00 PM EDT Office Visit [facility] OPTOMETRY [address] [place] [address] Elisabeth Whaley, OD [address] [place] [address] documented as of this encounter Goals Goal Patient Goal Type Associated Problems Recent Progress Patient-Stated? Author Blood Pressure < 140/90 Blood Pressure 152/100(2024 1:15 PM EDT) No Vladimir Domingo, Betty documented as of this encounter Visit Diagnoses Not on filedocumented in this encounter Additional Health Concerns Assessment Noted Time PHQ-9 Depression Total Score: 0 01/24/20 24 3:36 PM EDT documented as of this encounter Care Teams Public Relations Director Relationship Specialty Start Date End Date Bushra Segura MD [address] [place] [address] PCP - General Family Medicine 08/06/11 Vladimir Domingo PharmD [address] [place] [address] Pharmacist Internal Medicine 10/11/22 documented as of this encounter
--- OUTSIDE RECORDS SUMMARY | 2025-01-01 12:59 | XMS_ITS | Encounter Summary ---
Author Organization [employer] Address [address] [place] [address] Care Team Providers Care Dietary Cook Name Role Phone Bushra Segura MD Primary Care Provider [phone] Vladimir Domingo PharmD Unavailable [phone] Reason for Visit * Reason Onset Date Comments Reschedule 07/12/2023 Encounter Details Date Type Department Care Team ([facility] st Contact Info) Description 07/12/2023 Telephone [facility] MEDICINE [address] [place], [place] [phone] Bushra Segura MD [address] [place], [place] [phone] Reschedule Social History Tobacco Use Types Packs/Day [...] requesting r/s 07/19/2023 (HTN / lab) appt, tech writer attempted to schedule no availabilityafter 3:00PM due to pt request. documented in this encounter Plan of Treatment Upcoming Encounters Date Type Department Care Team (Late st Contact Info) Description 01/18/2025 3:00 PM EDT Office Visit [facility] OPTOMETRY [address] [place] [address] Elisabeth Whaley, OD [address] [place] [address] documented as of this encounter Goals Goal [...] documented as of this encounter Care Teams Dietary Cook Relationship Specialty Start Date End Date Bushra Segura MD [address] [place] [address] PCP - General Family Medicine 08/06/11 Vladimir Domingo, Betty [address] [place] [address] Pharmacist Internal Medicine 10/11/22 documented as of this encounter
--- OUTSIDE RECORDS SUMMARY | 2025-01-01 12:59 | XMS_ITS | Encounter Summary ---
Author Organization [employer] Address [address] [place] [address] Care Team Providers Care Risk And Insurance Manager Name Role Phone Bushra Segura MD Primary Care Provider [phone] Vladimir Domingo PharmD Unavailable [phone] Reason for Visit * Reason Onset Date Comments Nurse Triage 04/16/2024 Encounter Details Date Type Department Care Team ([facility] st Contact Info) Description 04/16/2024 Telephone [facility] MEDICINE [address] [place], [place] [phone] Bushra Segura MD [address] [place], [place] [phone] Nurse Triage Social History Tobacco Use Types [...] 04/16/2024 11:33 AM EDT Called pt. Via [employer] sap technical architect [id number] Jovany. Pt. States that he woke up 2 days ago with rightfoot pain. Right foot ankle pain , swelling and redness with blood pocket on ankle. pt. Was Unable to walk. Pt was treated by ED provider taking out blood from his ankle area at [facility] and then pt. Was able to walk. Pt. States that ankle was swollen and painful again so he went Yesterday 04/15/24 back to [facility] ED for foot pain, swelling and blood in skin. Pt. States that MRI's, Xrays, and blood testing taken. Pt states that he also had blood taken out of his foot as well. Pt. Was referred to a footwear machinery instructor. Pt. Went to [facility] specialist today at [address] Through [facility] to book an appt. As he wa referred there through ED but, pt. Was told that he had to wait for them to call him tobook an appt. Pt. Also told to book fu appt. With provider at [facility]. Appt booked for 04/17/[address] Akers. Pt. States no fever today, right foot slightly swollen and can walk on foot today.Will request notes from [facility] with clinical coordinators to have notes in chart from [facility] ED visits from 04/09/24-04/16/24 to be put [...] * Pain Medicines * Telephone Encounter - Juany Payan - 04/16/2024 11:05 AM EDT Symptom: [...] Description 01/18/2025 3:00 PM EDT Office Visit [facility] OPTOMETRY [address] [place], [place] [phone] Elisabeth Whaley, OD [address] [place] [address] documented as of this encounter Goals Goal Patient Goal Type Associated Problems Recent Progress Patient-Stated? Author Blood Pressure < 140/90 Blood Pressure 152/100(2024 1:15 PM EDT) No Vladimir Domingo, Betty documented as of this encounter Visit Diagnoses Not on filedocumented in this encounter Additional Health Concerns Assessment Noted Time PHQ-9 Depression Total Score: 0 01/24/20 3:36 PM EDT documented as of this encounter Care Teams Risk And Insurance Manager Relationship Specialty Start Date End Date Bushra Segura MD [address] [place] [address] PCP - General Family Medicine 08/06/11 Vladimir Domingo, Betty [address] [place] [phone] Pharmacist Internal Medicine 10/11/22 documented as of this encounter
--- OUTSIDE RECORDS SUMMARY | 2025-01-01 12:59 | XMS_ITS | Encounter Summary ---
Author Organization [facility] Address [address] [facility] 7t [place] [address] Care Team Providers Care Application Consultant Name Role Phone Bushra Segura MD Primary Care Provider [phone] Vladimir Domingo PharmD Unavailable [phone] Reason for Referral * Consultation (Routine) - Authorized Specialty Diagnoses / Procedures Referred By Contac t Referred To Contact Pharmacy Diagnoses Hypertension, unspecified type Bushra Segura MD [address] [place] [address] Phone: tel: fax: Referral ID Status Reason Start Date Expiration Date Visits Requested Visits Authorized [id number] Authorized Consult and Treat 09/14/2024 09/14/2025 6 6 Encounter Details Date Type Department Care Team (Late st Contact Info) Description 09/14/2024 Orders Only [facility] MEDICINE [address] [place] [phone] Bushra Segura MD [address] [place], [place] [phone] Hypertension, unspecified type (Primary Dx) Social History [...] Description 01/18/2025 3:00 PM EDT Office Visit [facility] OPTOMETRY [address] [place] [address] Judd, Elisabeth, OD [address] [place] [address] Scheduled Referrals Name Type Priority Associated Diagnoses Orde r Schedule Referral to Pharmacy CDTM Outpatient Referral Routine Hypertension, unspecified type Ordered: 09/14/2024 documented as of this encounter Goals Goal Patient Goal Type Associated Problems Recent Progress Patient-Stated? Author Blood Pressure < 140/90 Blood Pressure 152/100(2024 1:15 PM EDT) No Vladimir Domingo, PharmD documented as of this encounter Procedures Procedure Name Priority Date/Time Associated Diagnosis Comments GROSS AND MICROSCOPIC LEVEL 3 Routine 12/21/2024 2:36 PM EDT Hypertension, unspecified type documented in this encounter Results * Gross and Microscopic Level 3 (12/21/2024 2:36 PM EDT) 12/21/2024 2:36 PM EDT 12/25/2024 8:29 AM EDT [facility] - 12/26/2024 5:11 PM EDT ----- ------- Name: Osmani French ? Age/Sex: 54/M ? : 1970 Unit#: [id number] ?? Attend Dr: Gopal Waddell MD ?Re12/21/24 ?Status: REG SDC ? Location: HO.SSS ?Disch: ? ----- ------- SPEC : [id number] ? RECD: 12/25/24-828 ? STATUS: ??SOUT ? REQ NUM: [id number] ? LINA: 046 ? SUBM DR: Gopal Waddell MD ? ENTERED: ??12/25/24 ?SP TYPE: Surgical ? OTHR DR: Bushra Segura MD ? ORDERED: ??Gross Micro L3 ? Diagnosis ?? Soft tissue, ?hemorrhoids,? excision: ??Anorectal mucosa with dilated and thrombosed ?? vessels consistent with hemorrhoids. ?Clinical History Hemorrhoids ?Microscopic Description Microscopic sections reviewed. ? Material Received ?? Hemorrhoids ? Gross Description Received in formalin labeled ?hemorrhoids? is a 2.5 x 1.8 cm irregular portion of edematous, erythematous and violaceous blanton, garza-purple mucosa excised to a maximum depth of 0.6 cm. There is a central 0.6 cm blue-purple papule. ??The margins are inked and the specimen is sectioned to reveal congested and hemorrhagic garza-maroon cut surfaces. ??Filter Changing Technician sections are submitted in a cassette labeled A1. CEDS Copies To: ?? Gopal Waddell MD ?? [facility] General Surgeons ?? [address] [facility] ?? [place] [address] ?? [phone] ?? Bushra Segura MD ?? [facility] ?? [address] ?? [place] [address] ?? [phone] ----- ------- Signed (signature on file) Chester Lincoln MD 12/26/24 1711 ? ----- ------- ? END OF REPORT ? us Generic External Data Provider LAB CYTOLOGY SERVANDO DONNELLY Final Result [facility] [address] [place] [address] [phone] documented in this encounter Visit Diagnoses Diagnosis Hypertension, unspecified type- Primary documented in this encounter Additional Health Concerns Assessment Noted Time PHQ-9 Depression Total Score: 0 01/24/20 24 3:36 PM EDT documented as of this encounter Care Teams Application Consultant Relationship Specialty Start Date End Date Bushra Segura MD [address] [place] [address] PCP - General Family Medicine 08/06/11 Vladimir Domingo, Betty [address] [place], [place] [phone] Pharmacist Internal Medicine 10/11/22 documented as of this encounter
--- OUTSIDE RECORDS SUMMARY | 2025-01-01 12:59 | XMS_ITS | Encounter Summary ---
Author Organization [facility] Address [address] [facility] [address] [place] [address] Care Team Providers Care Product Grader Name Role Phone Bushra Segura MD Primary Care Provider [phone] Vladimir Domingo PharmD Unavailable [phone] Encounter Details Date Type Department Care Team (Latest Contact Info) Description 11/20/2019 Abstract [facility] CONVERSIONS Dental, Provider, DDS Social History Tobacco [...] Description 01/18/2025 3:00 PM EDT Office Visit [facility] OPTOMETRY [address] [place] [address] Elisabeth Whaley, OD [address] [place] [address] documented as of this encounter Visit Diagnoses Not on filedocumented in this encounter Care Teams Product Grader Relationship Specialty Start Date End Date Bushra Segura MD [address] [place] [address] PCP - General Family Medicine 08/06/11 Vladimir Domingo, PharmD [address] [place] [address] Pharmacist Internal Medicine 10/11/22 documented as of this encounter
--- OUTSIDE RECORDS SUMMARY | 2025-01-01 12:59 | XMS_ITS | Clinical Summary ---
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 Mehta, [facility], on 05/27/20, tubular adenoma -Recommended to [...] (07/11/2023): Last Assessment & Plan: Works in [employer] and possibly seasonal Vitamin D deficiency 08/09/2012 [...] Date Resolved Date Essential hypertension 01/30/202104/14 Immunizations Immunization Administration Dates Next Due Hepatitis B 01/25/2023 [...] Health Maintenance Due Date Last Done Comments Hepatitis B Vaccine (1 of 3 - 19+ 3-dose series) 1988 04/24/2024, 10/03/2023, 01/25/2023 Pneumococcal Vaccine: 50+ Ye ars (1 of 2 - PCV) 1988 Colorectal Cancer Screening: Annual FOBT 2018 Colorectal Cancer Screening: Colonoscopy 2018 Colorectal Cancer Screening: Sigmoidoscopy 2018 Influenza Vaccine Completed 09/11/2024, , 10/05/2022, Additional history exists Insurance Medicaid [place] Care Teams Sat Act Instructor Relationship Specialty Start Date End Date Bushra Segura MD PCP - General 09/15/20
--- OUTSIDE RECORDS SUMMARY | 2025-01-01 12:59 | XMS_ITS | Encounter Summary ---
Author Organization [employer] Address [address] [facility] [address] [place] [address] Care Team Providers Care Garage Supervisor Name Role Phone Bushra Segura MD Primary Care Provider [phone] Vladimir Domingo PharmD Unavailable [phone] Encounter Details Date Type Department Care Team ([facility] st Contact Info) Description 08/30/2022 Abstract [facility] MEDICINE [address] [place], [place] [phone] Bushra Segura MD [address] [place], [place] [phone] Primary hypertension (Primary Dx); Tubular adenoma of [...] in Jun - Jul 2022 -Co-managed with [facility] pharmacist / CDTM and gang supervisor -Continue amlodipine 10 mg daily. -Continue checking BP at home. Pt declined 24-hour BP monitoring by gang supervisor. -Continue Working on lifestyle modifications. -Treatment [...] kidney disease) stage 3, GFR 30-59 ml/min ([facility]) -Co-managed with gang supervisor, Dr. Galvez, last seen on 07/06/22 -Optimize BP control -Avoid nephrotoxic drugs * Assessment & Plan Note - Bushra Segura MD - 08/30/2022 7:13 AM ESTAssociated Problem(s): Tubular adenoma of colon -Colonoscopy by Dr. Mehta, [facility], on 05/27/20, tubular adenoma -Recommended to repeat in 5 years documented in this encounter Plan of Treatment Upcoming Encounters Date Type Department Care Team (Late st Contact Info) Description 01/18/2025 3:00 PM EDT Office Visit [facility] OPTOMETRY [address] [place] [address] Judd, Elisabeth, OD [address] [place] [address] documented as of this encounter Procedures Procedure [...] (CMS/HCC) documented in this encounter Care Teams Garage Supervisor Relationship Specialty Start Date End Date Bushra Segura MD [address] [place] [address] PCP - General Family Medicine 08/06/11 Vladimir Domingo, DanialD [address] [place] [address] Pharmacist Internal Medicine 10/11/22 documented as of this encounter
--- OUTSIDE RECORDS SUMMARY | 2025-01-01 12:59 | XMS_ITS | Clinical Summary ---
Author Organization [employer] Address [address] [place] [address] Care Team Providers Care Discharge Specialist Name Role Phone Bushra Segura MD Primary Care Provider [phone] Vladimir Domingo PharmD Unavailable [phone] Allergies Active Allergy Reactions Criticality Noted Date Comments Nsaids 08/30/2022 CKD Medications omeprazole (PriLOSEC) [address] capsule TAKE 1 CAPSULE BY MOUTH EVERY DAY FOR HEARTBURN 90 capsule 2 4 Active amLODIPine (Norvasc) 10 MG tablet Take 1 tablet (10 mg) by mouth Once per day. 90 tablet 3 4 Active SUMAtriptan (Imitrex) 50 MG tablet Take 1 tablet (50 mg) by mouth 1 (one) time if needed for migraine for up to 1 dose. May repeat dose once in 2 hours if no relief. Do not exceed 2 doses in 24 hours. 9 tablet 3 4 Active atorvastatin (Lipitor) 10 MG tablet Take 1 tablet (10 mg) by mouth at bedtime. 30 tablet 11 4 01/24/20 25 Active benzocaine-menth ol (Chloraseptic) 6-10 MG lozengeIndicatio ns:Pharyngitis, unspecified etiology Dissolve 1 lozenge in the mouth every 2 (two) hours if needed for sore throat. 100 lozenge 4 08/30/20 25 Active hydrocortisone (Anusol-HC) 2.5 % rectal cream Insert into the rectum 2 times daily. 28 g 1 5 Active loratadine (Claritin) 10 MG tablet TAKE 1 TABLET BY MOUTH EVERY DAY 90 tablet 1 5 Active Blood Pressure kit 1 each 2 times daily. 1 kit 4 12/20/19 25 azithromycin (Zithromax) 250 MG tabletIndication s:Viral URI Take 2 tablets (500 mg) by mouth Once per day for 1 day, THEN 1 tablet (250 mg) Once per day for 4 days. 6 tablet 5 12/05/19 25 Active Problems Problem Noted Date Diagnosed Date Hemorrhoid 09/21/2024 Assessment & Plan (12/25/2024 2:04 PM EDT): Pt here for a sick visit with c/o anal pain, intensity 5/10 Hx of bleeding hemorrhoids, underwent Hemorrhoidectomy on 12/21/[address] Waddell's note pt tolerated procedure well and was sent home with instructions to do Sitz baths 3 x day. Ice pack to incision if tender, No lifting, no strenuous activities Patient tells me that he has been following his instructions but admits to using hot water and applied Vicks vaporub to the area On exam, there is localized swelling around the 5 o;clock position in what it seems hemorrhoidal tissue, no discharge. Plan: I instructed pt to Stop using vicks, avoid hot water, and start applying the cold paks for 10 min or so to the incision as recommended by Dr. Pruitt. I also instructed him to contact the office of Dr. Pruitt today to schedule a follow up with him luis Pt agreeable with plan Assessment & Plan (09/21/2024 2:56 PM EST): [...] up, seen 2 days ago 04/15/2024 at [facility] with c/o 10/10 right ankle pain [...] of atraumatic hemarthrosis. 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, hemoconcentration -08/18/22 Erythropoietin level 8.5 mIU/mL (normal); lactate dehydrogenase 143 U/L Assessment & Plan (01/31/2024 10:55 AM EDT): - Evaluated by Parachute Accessories Attacher, last seen in Oct 2023 - Parachute Accessories Attacher's impression is benign and 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, hemoconcentration -08/18/22 Erythropoietin level 8.5 mIU/mL (normal); lactate dehydrogenase 143 U/L Assessment & Plan (10/14/2023 6:11 AM EST): - Evaluated by Parachute Accessories Attacher, last seen in Apr 2023 -Hct 47.5 on 08/18/22, 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, hemoconcentration -Pt encouraged to increase water intake -08/18/22 Erythropoietin level 8.5 mIU/mL (normal); lactate dehydrogenase 143 U/L Assessment & Plan (01/25/2023 2:01 PM EDT): Patient was referred to Parachute Accessories Attacher; Seen by Parachute Accessories Attacher on 08/18/22 -Hct 47.5 on 08/18/22, 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 Galvez, last seen on 07/06/22 -Optimize BP control -Avoid nephrotoxic drugs -Consider re-referral Assessment & Plan (04/24/2024 4:16 PM EDT): -Previously seeing certified peer specialist, Dr. Galvez, last seen on 07/06/22 -Optimize BP control -Avoid nephrotoxic drugs -Consider re-referral Assessment & Plan (01/31/2024 10:54 AM EDT): -Previously seeing certified peer specialist, Dr. Galvez, last seen on 07/06/22 -Optimize BP control -Avoid nephrotoxic drugs -Consider re-referral Assessment & Plan (10/14/2023 6:09 AM EST): -Co-managed with certified peer specialist, Dr. Galvez, last seen on 07/06/22 -Optimize BP control -Avoid nephrotoxic drugs Assessment & Plan (01/25/2023 2:00 PM EDT): -Co-managed with certified peer specialist, Dr. Galvez, last seen on 07/06/22 -Optimize BP control -Avoid nephrotoxic drugs Assessment & Plan (10/05/2022 12:07 PM EST): -Co-managed with certified peer specialist, Dr. Galvez, last seen on 07/06/22 -Optimize BP control -Avoid nephrotoxic drugs Assessment & Plan (08/30/2022 9:53 AM EST): -Co-managed with certified peer specialist, Dr. Galvez, last seen on 07/06/22 -08/04/22 BUN 19; SCr 1.42; eGFR 59; K 4.3 -Optimize BP control -Avoid nephrotoxic drugs Assessment & Plan (08/30/2022 7:15 AM EST): -Co-managed with certified peer specialist, Dr. Galvez, last seen on 07/06/22 -Optimize BP control -Avoid nephrotoxic drugs Tubular adenoma of colon 08/30/2022 Assessment & Plan (10/14/2023 6:08 AM EST): -Colonoscopy by Dr. Mehta, [facility], on 05/27/20, tubular adenoma -Recommended to repeat in 5 years Assessment & Plan (10/05/2022 12:07 PM EST): -Colonoscopy by Dr. Mehta, [facility], on 05/27/20, tubular adenoma -Recommended to repeat in 5 years Assessment & Plan (08/30/2022 9:54 AM EST): -Colonoscopy by Dr. Mehta, [facility], on 05/27/20, tubular adenoma -Recommended to repeat in 5 years Assessment & Plan (08/30/2022 7:13 AM EST): -Colonoscopy by Dr. Mehta, [facility], on 05/27/20, tubular adenoma -Recommended to [...] - continues to be elevated -Co-managed with [facility] pharmacist / CDTM and certified peer specialist -Continue amlodipine 10 mg daily, improve adherence -Continue checking BP at home. Pt declined 24-hour BP monitoring by certified peer specialist. -Continue Working on lifestyle modifications. Discussed about low sodium diet -Treatment HX: --HCTZ -> hypokalemia; lisinopril was discontinued once due to ESE and discontinued again --Metoprolol was self-disconitnued due to concern of side effects --losartan 12.5 mg was self-discontinued since pt had not been adherent and was found to have goal BP without it - Patient was previously seeing a certified peer specialist, but stopped going. Consider re-referral to certified peer specialist / station baggage porter Assessment & Plan (04/24/2024 4:15 PM EDT): -Goal BP < 140/90 per JNC-8, < 130/80 per ACC/AHA guideline - continues to be elevated -Co-managed with [facility] pharmacist / CDTM and certified peer specialist -Continue amlodipine 10 mg daily, improve adherence -Continue checking BP at home. Pt declined 24-hour BP monitoring by certified peer specialist. -Continue Working on lifestyle modifications. Discussed about low sodium diet -Treatment HX: --HCTZ -> hypokalemia; lisinopril was discontinued once due to ESE and discontinued again --Metoprolol was self-disconitnued due to concern of side effects --losartan 12.5 mg was self-discontinued since pt had not been adherent and was found to have goal BP without it - Patient was previously seeing a certified peer specialist, but stopped going. Consider re-referral to certified peer specialist / station baggage porter Assessment & Plan (04/17/2024 11:30 AM EDT): Goal BP < 140/90 per JNC-8, < 130/80 per ACC/AHA guideline Elevated for last few days likely due to pain Pt tells me everytime he checks his Bllod pressure at home is normal , so he discontinued the amlodipine 10 mg daily. Plan: Continue checking BP at home. Pt declined 24-hour BP monitoring by certified peer specialist.Continue Working on lifestyle modifications. Pt gladis has appointment with PCP 05/04/2024 -Treatment HX: [...] and patient lost his medication -Co-managed with [facility] pharmacist / CDTM and certified peer specialist -Continue amlodipine 10 mg daily., patient has not been taking so will restart -Continue checking BP at home. Pt declined 24-hour BP monitoring by certified peer specialist. -Continue Working on lifestyle modifications. -Treatment HX: --HCTZ -> hypokalemia; lisinopril was discontinued once due to ESE and discontinued again --Metoprolol was self-disconitnued due to concern of side effects --losartan 12.5 mg was self-discontinued since pt had not been adherent and was found to have goal BP without it - Patient was previously seeing a certified peer specialist, but stopped going. Consider re-referral to certified peer specialist / station baggage porter Assessment & Plan (10/14/2023 6:06 AM EST): -Goal BP < 140/90 per JNC-8, < 130/80 per ACC/AHA guideline -Suboptimal control, questionable medication adherence -Co-managed with [facility] pharmacist / CDTM and certified peer specialist -Continue amlodipine 10 mg daily. -Continue checking BP at home. Pt declined 24-hour BP monitoring by certified peer specialist. -Continue Working on lifestyle modifications. -Treatment HX: [...] in Jun - Jul 2022 -Co-managed with [facility] pharmacist / CDTM and certified peer specialist -Continue amlodipine 10 mg daily. -Continue checking BP at home. Pt declined 24-hour BP monitoring by certified peer specialist. -Continue Working on lifestyle modifications. -Treatment HX: [...] -Suboptimal control in JunJul 2022 -Co-managed with [facility] pharmacist / CDTM and certified peer specialist -Continue amlodipine 10 mg daily. -Continue checking BP at home. Pt declined 24-hour BP monitoring by certified peer specialist. -Continue Working on lifestyle modifications. -Treatment HX: [...] -Suboptimal control in JunJul 2022 -Co-managed with [facility] pharmacist / CDTM and certified peer specialist -Continue amlodipine 10 mg daily. -Continue checking BP at home. Pt declined 24-hour BP monitoring by certified peer specialist. -Continue Working on lifestyle modifications. -Treatment HX: [...] -Suboptimal control in JunJul 2022 -Co-managed with [facility] pharmacist / CDTM and certified peer specialist -Continue amlodipine 10 mg daily. -Continue checking BP at home. Pt declined 24-hour BP monitoring by certified peer specialist. -Continue Working on lifestyle modifications. -Treatment HX: [...] -Suboptimal control in JunJul 2022 -Co-managed with [facility] pharmacist / CDTM and certified peer specialist -Continue amlodipine 10 mg daily. -Continue checking BP at home. Pt declined 24-hour BP monitoring by certified peer specialist. -Continue Working on lifestyle modifications. -Treatment HX: --HCTZ -> hypokalemia; lisinopril was discontinued once due to ESE and discontinued again --Metoprolol was self-disconitnued due to concern of side effects --losartan 12.5 mg was self-discontinued since pt had not been adherent and was found to have goal BP without it Allergic rhinitis 02/24/2016 Assessment & Plan (02/04/2023 9:00 AM EDT): Works in [employer] and possibly seasonal Assessment & Plan (10/05/2022 12:09 PM EST): Works in [employer] and possibly seasonally Gastroesophageal reflux disease 08/09/2012 [...] -Normal erythropoietin level in 2018 -Refer to gas meter checker Chronic kidney disease (CKD) stage G3a/A1, moderately decreased glomerular filtration rate (GFR) between 45-59 mL/min/1.73 square meter and albuminuria creatinine ratio less than 30 mg/g 08/06/2022 08/30/2022 Elevated levels of transamin ase & lactic acid dehydrogenase 08/09/2012 08/30/2022 Encounters Date Type Department Care Team Description 12/25/2024 1:40 PM EDT Office Visit [facility] WALK-IN [address] [address] Morales Gipson MD Hemorrhoids, unspecified hemorrhoid type (Primary Dx) 11/30/2024 9:20 AM EDT Office Visit [facility] [address] [address] Russell Lu MD Viral URI 11/21/2024 Refill [facility] MEDIC[facility] [address] [place] [phone] Bushra Segura MD 10/29/2024 Telephone [facility] [address] [place] [phone] Bushra Segura MD 10/26/2024 Telephone [facility] [address] [place] [phone] Bushra Segura MD Appointment Request from Last 3 Months Immunizations Name Administration [...] Sign Reading Time Taken Comments Blood Pressure 152/100 12/25/2024 1:15 PM EDT Pulse 71 12/25/2024 1:15 PM EDT Temperature 36.7 ??C (98.1 ??F) 12/25/2024 1:15 PM ED T Respiratory Rate 17 12/25/2024 1:15 PM EDT Oxygen Saturation 96% 12/25/2024 1:15 PM EDT Inhaled Oxygen Concentration - - Weight 73.9 kg (163 lb) 12/25/2024 1:15 PM EDT Height 167.6 cm (5' 6 ) 04/24/2024 3:20 PM EDT Body Mass Index 26.31 04/24/2024 3:20 PM EDT Plan of Treatment Upcoming Encounters Date Type Department Care Team (Late st Contact Info) Description 01/18/2025 3:00 PM EDT Office Visit [facility] OPTOMETRY [address] [place] [address] Judd, Elisabeth, OD [address] [place] [address] Health Maintenance Due Date Last Done Comments CT Colonography 1970 FIT DNA/Cologuard 1970 FIT 1970 FOBT 1970 Sigmoidoscopy 1970 Pneumococcal Vaccine: 50+ Years (1 of 1 - PCV) 2019 DTaP/Tdap/Td Vaccines (2 - Td or Tdap) 05/25/2021 05/25/2011 Diabetes: Hemoglobin A1C 11/10/2024 03 024, 08/04/2022, 06/26/2021, Additional history exists SDOH [...] 152/100(2024 1:15 PM EDT) No Vladimir Domingo, DanialD Procedures Procedure Name Priority Date/Time Associated Diagnosis Comments GROSS AND MICROSCOPIC LEVEL 3 Routine 12/21/2024 2:36 PM EDT Hypertension, unspecified type RESPIRATORY VIRAL PANEL PCR Routine 11/30/2024 9:25 AM EDT Viral URI POCT RAPID STREP A Routine 11/30/2024 9: 22 AM EDT Viral URI POCT INFLUENZA B (ID NOW RAPID MOLECULAR) Routine 11/30/2024 9:22 AM EDT Viral URI POCT INFLUENZA A (ID NOW RAPID MOLECULAR) Routine 11/30/2024 9:22 AM EDT Viral URI POCT RAPID COVID ANTIGEN Routine 11/30/2024 9:07 AM EDT Viral URI HEPATITIS C ANTIBODY ([place] D[facility]) Routine 09/03/2024 HIV ANTIBODY/ANTIGEN ([place] [facility]) Routine 09/03/2024 HEMOGLOBIN A1C Routine 11/11/2023 9:03 AM EST Hypertriglyceridemia LIPID PANEL WITH REFLEX TO DIRECT LDL Routine 11/11/2023 9:03 AM EST Hypertriglyceridemia HM COLONOSCOPY Routine 01/20/2023 3:14 PM EDT from Last 3 Months or Most Recently Relevant to Health Maintenance Results * Gross and Microscopic Level 3 (12/21/2024 2:36 PM EDT) 12/21/2024 2:36 PM EDT 12/25/2024 8:29 AM EDT [facility] - 12/26/2024 5:11 PM EDT ----- ------- Name: HernánLeonardo Serranos A ? Age/Sex: 54/M ? : 1970 Unit#: [id number] ?? Attend Dr: Gopal Waddell MD ?Re12/21/24 ?Status: REG SDC ? Location: HO.SSS ?Disch: ? ----- ------- SPEC : [id number] ? RECD: 12/25/24 ? STATUS: ??SOUT ? REQ NUM: [id number] ? LINA: 12/21/24-0196 ? SUBM DR: Gopal Waddell MD ? [...] irregular portion of edematous, erythematous and violaceous more, garza-purple mucosa excised to a maximum depth of 0.6 cm. There is a central 0.6 cm blue-purple papule. ??The margins are inked and the specimen is sectioned to reveal congested and hemorrhagic garza-maroon cut surfaces. ??Advanced Nursing Professor sections are submitted in a cassette labeled A1. CEDS Copies To: ?? Gopal Waddell MD ?? [facility] General Surgeons ?? [address] ?? [place] [address] ?? [phone] ?? Bushra Segura MD ?? [facility] ?? [address] ?? [place] [address] ?? [phone] ----- ------- Signed (signature on file) Chester Lincoln MD 12/26/24 [id number] ? ----- ------- ? END OF REPORT ? us Generic External Data Provider LAB CYTOLOGY SERVANDO DONNELLY Final Result [facility] [address] [place] [address] [phone] * Respiratory Viral Panel PCR (11/30/2024 9:25 AM EDT) Adenovirus PCR Not Detected Not Detect. [facility] Bordetella pertussis PCR Not Detected Not Detect. [facility] Comment:Interpret results wi th caution. If B. pertussis isspecifically suspected, additional testing using analternate method is recommended. Bordetella parapertussis PCR Not Detected Not Detect. [facility] Chlamydia pneumoniae PCR Not Detected Not Detect. [facility] Coronavirus 229E PCR Not Detected Not Detect. [facility] Coronavirus HKU1 PCR Not Detected Not Detect. [facility] Coronavirus NL63 PCR Not Detected Not Detect. [facility] Coronavirus OC43 PCR Not Detected Not Detect. [facility] SARS-CoV-2 PCR Not Detected Not Detect. [facility] Comment:SARS-CoV-2 not detec denise by real-time RT-PCR.Note: If clinical suspicion for Sars-CoV-2 is high, continueto maintain precautions and consider repeat testing.Test results should be interpreted in the context ofclinical findings and other laboratory data.Rare polymorphisms exist that could lead to false-negativeor false-positive results. If results do not match theclinical findings, additional testing should be considered.Results reported to [facility].This test has been authorized by the FDA under the EmergencyUse Authorization (EUA) for use by authorized laboratories. Influenza A PCR Not Detected Not Detect. [facility] Influenza A Subtype H1 Not Detected Not Detect. [facility] Influenza A H1-2009 PCR Not Detected Not Detect. [facility] Influenza A Subtype H3 Not Detected Not Detect. [facility] Influenza B PCR Not Detected Not Detect. [facility] Human metapneumovirus PCR Not Detected Not Detect. [facility] Rhino/Enterovirus PCR Not Detected Not Detect. [facility] Mycoplasma pneumoniae PCR Not Detected Not Detect. [facility] Parainfluenza 1 PCR Not Detected Not Detect. [facility] Parainfluenza 2 PCR Not Detected Not Detect. [facility] Parainfluenza 3 PCR Not Detected Not Detect. [facility] Parainfluenza 4 PCR Not Detected Not Detect. [facility] RSV PCR Not Detected Not Detect. [facility] Resp Panel NA Note See Note H [facility] Comment:All results must be correlated with clinical findings.Negative results should not be used as the sole basis fordiagnosis, treatment, or other management decisions.A negative result does not exclude the possibility of viralor bacterial infection. Negative results may occur from thepresence of sequence variants in the region targeted by theassay, the presence of inhibitors, an infection caused by anorganism not detected by the panel, or lower respiratorytract infections that are not detected by a nasopharyngealswab specimen. Test results may also be affected byconcurrent antiviral/antibacterial therapy or levels oforganism in the specimen that are below the limit ofdetection for this test.This assay is performed by Multiplexed PCR, utilizing [employer]. Swab 11/30/2024 9:25 AM EDT 11/30/2024 4:21 PM EDT Russell Lu MD LAB BLOOD ORDERABLES Final Resul t [facility] [address] [place] [phone] * Influenza B (ID NOW Rapid Molecular) (11/30/2024 9:22 AM EDT) Influenza B Negative Negative, Indeterminate [facility] Swab 11/30/2024 9:22 AM EDT Russell Lu MD POINT OF CARE TEST ENTER/EDIT OR DERABLES Final Result [facility] [address] [place] [address] [phone] * Influenza A (ID NOW Rapid Molecular) (11/30/2024 9:22 AM EDT) [facility] Influenza A Negative Negative, Indeterminate [facility] Swab 11/30/2024 9:22 AM EDT Russell Lu MD POINT OF CARE TEST ENTER/EDIT OR DERABLES Final Result Performing Organization Address City/[facility]/ZIP Co de Phone Number [facility] [address] [place] [phone] * POCT rapid strep A manually resulted (11/30/2024 9:22 AM EDT) [facility] Rapid Strep A Screen Negative Negative, None Detected Swab 11/30/2024 9:22 AM EDT Result [facility] Russell Lu MD POINT OF CARE TEST ENTER/EDIT OR DERABLES Final Result * POCT Rapid COVID Ag (11/30/2024 9:07 AM EDT) [facility] Rapid COVID Ag Negative Swab 11/30/2024 9:07 AM EDT Result [facility] Russell Lu MD POINT OF CARE TEST ENTER/EDIT OR DERABLES Edited Result - Final * Hepatitis C Antibody ([place] [facility]) (09/03/2024) [facility] Hepatitis C Ab Nonreactive Blood 09/03/2024 Lisa Naik MD LAB BLOOD ORDERABLES Peggy l Result * HIV Ab/Ag ([place] [facility]) (09/03/2024) [facility] HIV Ag/Ab Nonreactive Blood 09/03/2024 us Historical Provider LAB BLOOD ORDERABLES Peggy l Result * (ABNORMAL) Lipid Panel with Reflex to Direct LDL (11/11/2023 9:03 AM EST) Triglycerides 352(H) <150 mg/dL [facility] Comment:Desirable Triglyceri de: less than 150 mg/dLBorderline High Triglyceride 150-199 mg/dLHigh Triglyceride: 200-499 mg/dLVery High Triglyceride: greater than or equal to 5OO mg/dL Cholesterol 211(H) <200 mg/dL [facility] Comment:Desirable Cholestero l: less than 200 mg/dLBorderline High Cholesterol: 200-239 mg/dLHigh Cholesterol: greater than 239 mg/dL LDL Cholesterol Calculated 106(H) <100 mg/dL [facility] Comment:Desirable LDL: less than 100 mg/dLNear Optimal/Above Optimal LDL: 110- 129 mg/dLBorderline High LDL: 130-159 mg/dLHigh LDL: 160-189 mg/dLVery High LDL: greater than or equal to 190 mg/dL HDL Cholesterol 35(L) >40 mg/dL [facility] Comment:Desirable HDL: great er than 40 mg/dL Note: This HDL assay may give artificially low results in patients with liver disease. Blood 11/11/2023 9:03 AM EST 11/11/2023 11:29 AM EST Bushra Segura MD LAB BLOOD ORDERABLES Final Resul t [facility] [address] [place] [phone] * Hemoglobin A1c (11/11/2023 9:03 AM EST) Hemoglobin A1c 5.9 <6.0 % [facility] Comment:Hemoglobin A1C Refer ence Range Adults: 4.8 - 6.0 % Non diabetic: < 6.0 % Goal: < 7.0 %Additional Action Suggested: > 8.0 %Note: Hemoglobin A1c results are invalid for patients with abnormal amounts of HbF. Blood transfusions may impact the HbA1c concentration in the patient sample. Estimated Average Glucose 123 mg/dL [facility] Comment:eAG = Estimated ave rage glucose which is %A1C expressed asaverage glucose, using the formula of the K9L-CdnbxrnGhzujbd Glucose study (ADAG), Diabetes Care, Vol.31,#8,Apr. 2007 Blood Venous blood specimen / Unknown 11/11/2023 9:03 AM EST 11/11/2023 11:19 AM EST us Bushra Segura MD LAB BLOOD ORDERABLES Final Resul t [facility] [address] [place] [phone] * Colonoscopy (01/20/2023 3:14 PM EDT) Colonoscopy Normal Normal us Arnaldo Mehta MD HEALTH MAINTENANCE Final Result from Last 3 Months or Most Recently Relevant to Health Maintenance Insurance [facility] Care Teams Discharge Specialist Relationship Specialty Start Date End Date Bushra Segura MD [address] [place] [phone] PCP - General Family Medicine 08/06/11 Vladimir Domingo, PharmD [address] [place] [phone] Pharmacist Internal Medicine 10/11/22
== END 2025-01-01 11:37 | disposition home or self-care (01) ==
LOC: HO.HGS 11:07
PROVIDERS: PCP Family Medicine; Visit Provider Surgery
DX: K64.8 Other hemorrhoids (principal)
CPT/HCPCS: 99024

== ENCOUNTER 2025-02-11 13:10 | Outpatient (AMB) | payer BC, SELFPAY ==
--- NOTE | 2025-02-11 13:11 | A.OFFVIS_ITS ---
Vital Signs 02/11/25 13:17 Weight 174 lb BP 153/95 H Blood Pressure Location Rt brachial Position Sitting Pulse 76 Intake Visit Reasons: 1 month follow up Intake Note: Patient here s/p 1mo hemorrhoidectomy. Patient c/o: reports incision healed well. Denies bleeding, oozing. News Production Assistant Required: No Accompanied by: Self / Same As Patient Allergies No Known Allergies [No Known Allergies*] Allergy (Verified 02/11/25 13:11) HPI HPI 1 month follow up: Details: He had undergone hemorrhoidectomy last December, and is here for another postop visit. He currently denies significant complaints. He says he feels well overall. Denies any pain or bleeding. [facility] Medical History Hemorrhoids with complication Allergic rhinitis Chronic gastritis without bleeding Chronic esophagitis Tubular adenoma Hypertension (~10/10/12) Impaired fasting glucose (~08/09/12) Chronic kidney disease (~04/24/14) Migraine (~08/09/12) GERD (gastroesophageal reflux disease) (~08/09/12) Transaminitis (~08/09/12) Vitamin D deficiency (~08/09/12) Hypertriglyceridemia (~08/09/12) Diverticulosis of colon Hemorrhoids Acid reflux Surgical History H/O hemorrhoidectomy (~2006) Hx laparoscopic cholecystectomy (~12/09/11) S/P cholecystectomy (~08/09/12) Family History Sister Diabetes Social History Household Members: Friend(s) Household Members Other:: Housing: House Alcohol intake: never Patient Tobacco Use Status: Never used Tobacco service: No Current occupational status: employed Current occupation: software security consultant Review of Systems Const Denies chills and Denies fever(s) Card Denies chest pain Resp Denies cough GI Denies abdominal pain and Denies hematochezia Physical Exam Const General: comfortable and no acute distress GI Other: Rectal exam shows the hemorrhoidectomy sites to be completely healed. There were no signs of any infection Assessment & Plan Assessment & Plan (1) Hemorrhoids with complication: Code(s): K64.8 - Other hemorrhoids Category: Medical Plan: Status post hemorrhoidectomy. His surgical site is completely well healed. He therefore can follow up on a p.r.n. basis. Coding Level of Care Code Global (47458) Diagnoses Hemorrhoids with complication K64.8
[2025-02-11 13:17] VITALS: BP 153/95; PULSE 76
--- OUTSIDE RECORDS SUMMARY | 2025-02-11 14:51 | XMS_ITS | Encounter Summary ---
Author Organization [facility] Address [address] [facility] [address] [place] [address] Care Team Providers Care Dance Choreographer Name Role Phone Bushra Segura MD Primary Care Provider [phone] Vladimir Domingo PharmD Unavailable [phone] Encounter Details Date Type Department Care Team ([facility] st Contact Info) Description 08/30/2022 Abstract [facility] [address] [place], [place] [phone] Bushra Segura MD [address] [place], [place] [phone] Primary hypertension (Primary Dx); Tubular adenoma of [...] in Jun - Jul 2022 -Co-managed with [facility] pharmacist / CDTM and mortgage loan processor -Continue amlodipine 10 mg daily. -Continue checking BP at home. Pt declined 24-hour BP monitoring by mortgage loan processor. -Continue Working on lifestyle modifications. -Treatment HX: [...] kidney disease) stage 3, GFR 30-59 ml/min ([facility]) -Co-managed with mortgage loan processor, Dr. Galvez, last seen on 07/06/22 -Optimize BP control -Avoid nephrotoxic drugs * Assessment & Plan Note - Bushra Segura MD - 08/30/2022 7:13 AM ESTAssociated Problem(s): Tubular adenoma of colon -Colonoscopy by Dr. Mehta, [facility], on 05/27/20, tubular adenoma -Recommended to repeat in 5 years documented in this encounter Plan of Treatment Not on file documented as of this encounter Procedures Procedure Name Priority Date/Time Associated Diagnosis Comments COLONOSCOPY Routine 08/30/2022 documented in this encounter Results * Colonoscopy (08/30/2022) Colonoscopy 05/27/2020 Comment:Tubular adenoma Historical Provider HEALTH MAINTENANCE Final Result documented in this encounter Visit Diagnoses Diagnosis Primary hypertension- Primary Unspecified essential hypertension Tubular adenoma of colon Benign neoplasm of colon Stage 3a chronic kidney disease ([facility]/HCC) documented in this encounter Care Teams Dance Choreographer Relationship Specialty Start Date End Date Bushra Segura MD [address] [place] [address] [phone] PCP - General Family Medicine 08/06/11 Vladimir Domingo, PharmD [address] [place] [phone] Pharmacist Internal Medicine 10/11/22 documented as of this encounter
== END 2025-02-11 13:24 | disposition home or self-care (01) ==
LOC: HO.HGS 13:10
PROVIDERS: PCP Family Medicine; Visit Provider Surgery
DX: K64.8 Other hemorrhoids (principal)
CPT/HCPCS: 99024

== ENCOUNTER → 2025-02-11 13:10 | Outpatient (BNVA) | payer BC, SELFPAY | PROVIDERS: PCP Family Medicine; Visit Provider Surgery ==

== ENCOUNTER 2025-08-21 06:28 | Outpatient (REF) | payer BC, SELFPAY ==
--- OUTSIDE RECORDS SUMMARY | 2025-08-21 06:32 | XMS_ITS | Encounter Summary ---
Author Organization [facility] Address [address] [facility] [address] [place] [address] Care Team Providers Care Veneer Puller Name Role Phone Bushra Segura MD Primary Care Provider Vladimir Domingo PharmD Unavailable [phone] Encounter Details Date Type Department Care Team (Latest Contact Info) Description 10/01/2021 Abstract [facility] Dental, Provider, DDS Social History Tobacco Use Types Packs/Day Years Used Date Smoking Tobacco: Never Assessed Sex and Gender Information Value Date Recorded Sex Assigned at Male 07/05/2022 10:15 AM EDT Legal Sex Male 10:15 AM EDT Gender Identity Male 07/05/2022 10:15 AM EDT Sexual Orientation Straight 07/05/2022 10 :15 AM EDT documented as of this encounter Plan of Treatment Not on file documented as of this encounter Visit Diagnoses Not on filedocumented in this encounter Care Teams Veneer Puller Relationship Specialty Start Date End Date Bushra Segura MD [address] [place] [phone] PCP - General Family Medicine 08/06/11 Vladimir Domingo, PharmD [address] [place], [place] [phone] Pharmacist Internal Medicine 10/11/22 documented as of this encounter
--- OUTSIDE RECORDS SUMMARY | 2025-08-21 06:32 | XMS_ITS | Encounter Summary ---
Author Organization [facility] [employer] Address [address] [facility] [address] [place] [address] Care Team Providers Care Milk Collector Name Role Phone Bushra Segrua MD Primary Care Provider [phone] Vladimir Domingo PharmD Unavailable [phone] Reason for Referral * Consultation (Routine) - Closed Specialty Diagnoses / Procedures Referred By Contac t Referred To Contact Pharmacy Diagnoses Hypertension, unspecified type Bushra Segura MD [address] [place] [address] Phone: tel: fax: Referral ID Status Reason Start Date Expiration Date V isits Requested Visits Authorized [id number] Closed Consult and Treat 09/14/2024 09/14/2025 6 6 Encounter Details Date Type Department Care Team (Late st Contact Info) Description 09/14/2024 Orders Only [facility] [address] [place] [address] [phone] Bushra Segura MD [address] [place], [place] [phone] Hypertension, unspecified type (Primary Dx) Social History [...] as of this encounter Plan of Treatment Scheduled Referrals Name Type Priority Associated Diagnoses Orde r Schedule Referral to Pharmacy CDTM Outpatient Referral Routine Hypertension, unspecified type Ordered: 09/14/2024 documented as of this encounter Goals Goal Patient Goal Type Associated Problems Recent Progress Patient-Stated? Author Blood Pressure < 140/90 Blood Pressure 141/93( 025 8:46 AM EDT) No Vladimir Domingo, PharmD documented as of this encounter Procedures Procedure Name Priority Date/Time Associated Diagnosis Comments GROSS AND MICROSCOPIC LEVEL 3 Routine 12/21/2024 2:36 PM EDT Hypertension, unspecified type documented in this encounter Results * Gross and Microscopic Level 3 (12/21/2024 2:36 PM EDT) 12/21/2024 2:36 PM EDT 12/25/2024 8:29 AM EDT Narrative [facility] - 12/26/2024 5:11 PM EDT ----- ------- Name: Osmani French Age/Sex: 54/M : 1970 Unit#: [id number] Attend Dr: Gopal Waddell MD Re12/21/24 Status: REG [facility] Location: [facility] Disch: ----- ------- SPEC : RECD: 12/25/24 STATUS: FAROOQ BOLANOS NUM: [id number] LINA: 12/21/[address] [facility] DR: Gopal Waddell MD ENTERED: 12/25/24 SP TYPE: Surgical OTHR DR: Bushra Segura MD ORDERED: Gross Micro L3 Diagnosis Soft tissue, hemorrhoids, excision: Anorectal mucosa with dilated and thrombosed vessels consistent with hemorrhoids. Clinical History Hemorrhoids Microscopic Description Microscopic sections reviewed. Material Received Hemorrhoids Gross Description Received in formalin labeled hemorrhoids is a 2.5 x 1.8 cm irregular portion of edematous, erythematous and violaceous blanton, garza-purple mucosa excised to a maximum depth of 0.6 cm. There is a central 0.6 cm blue-purple papule. The margins are inked and the specimen is sectioned to reveal congested and hemorrhagic garza-maroon cut surfaces. Fulfillment Mail Clerk sections are submitted in a cassette labeled A1. CEDS Copies To: Gopal Waddell MD [facility] [address] [place] [address] [phone] Bushra Segura MD [facility] [address] [place] [address] ----- ------- Signed (signature on file) Chester Lincoln MD 12/26/24 1711 ----- ------- END OF REPORT us Generic External Data Provider LAB CYTOLOGY SERVANDO DONNELLY Final Result [facility] [address] [place] [phone] documented in this encounter Visit Diagnoses Diagnosis Hypertension, unspecified type- Primary documented in this encounter Additional Health Concerns Assessment Noted Time PHQ-9 Depression Total Score: 0 01/24/20 24 3:36 PM EDT documented as of this encounter Care Teams Milk Collector Relationship Specialty Start Date End Date Bushra Segura MD [address] [place] [phone] PCP - General Family Medicine 08/06/11 Vladimir Domingo, PharmD [address] [place] [address] [phone] Pharmacist Internal Medicine 10/11/22 documented as of this encounter
--- OUTSIDE RECORDS SUMMARY | 2025-08-21 06:32 | XMS_ITS | Clinical Summary ---
Author Organization [email or web address] Address [address] [facility] [address] [place] [address] Care Team Providers Care Broker [employer] Name Role Phone Bushra Segura MD Primary Care Provider [phone] Vladimir Domingo PharmD Unavailable [phone] Allergies Active Allergy Reactions Criticality Noted Date Comments Nsaids 08/30/2022 CKD Medications hydrocortisone (Anusol-HC) 2.5 % rectal cream Insert into the rectum 2 times daily. 28 g 1 09/21/2024 Active Acetaminophen Extra Strength 500 MG tablet TAKE 1 TABLET BY MOUTH EVERY 8 HOURS NEEDED FOR MILD PAIN FOR UP TO 10 DAYS 12/25/2024 Active amLODIPine (Norvasc) 10 MG tablet TAKE 1 TABLET BY MOUTH EVERY DAY 90 tablet 3 08/12/2025 3:54 PM EST 04/11/2025 Active SUMAtriptan (Imitrex) 50 MG tablet TAKE 1 TABLET BY MOUTH AT ONSET OF MIGRAINE. MAY REPEAT ONCE AFTER 2 HOURS IF NEEDED. DO NOT EXCEED 2 DOSES IN 24 HOURS. 9 tablet 3 04/11/2025 Active atorvastatin (Lipitor) 10 MG tablet TAKE 1 TABLET BY MOUTH EVERY DAY AT BEDTIME 30 tablet 3 08/12/2025 3:53 PM EST 04/11/2025 Active MAGNESIUM OXIDE, ELEMENTAL, PO Take 1 tablet by mouth Once per day. Active POTASSIUM BICARBONATE PO Take 1 tablet by mouth Once per day. Active predniSONE (Deltasone) 10 MG tabletIndication s:Poison sheyla dermatitis Take by oral route daily. 6 tabs (=60mg) on day 1-2; 5 tabs (=50mg) on day 3-4; 4 tabs (=40mg) on day 5-6; 3 tabs (=30mg) on day 7-8; 2 tabs (=20mg) on day 9-10; 1 tab on day 11-12; 1/2 tab on day 13-14 43 tablet 05/24/2025 Active Omeprazole 20 MG tablet delayed-release Take 1 tablet (20 mg) by mouth Once per day. 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, hemoconcentration -08/18/22 Erythropoietin level 8.5 mIU/mL (normal); lactate dehydrogenase 143 U/L Assessment & Plan (10/14/2023 6:11 AM EST): - Evaluated by [employer], last seen in Apr 2023 -Hct 47.5 on 08/18/22, 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, hemoconcentration -Pt encouraged to increase water intake -08/18/22 Erythropoietin level 8.5 mIU/mL (normal); lactate dehydrogenase 143 U/L Assessment & Plan (01/25/2023 2:01 PM EDT): Patient was referred to [employer]; Seen by [employer] on 08/18/22 -Hct 47.5 on 08/18/22, 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 Galvez, last seen on 07/06/22 -Optimize BP control -Avoid nephrotoxic drugs -Consider re-referral Assessment & Plan (04/24/2024 4:16 PM EDT): -Previously seeing transitional care nurse, Dr. Galvez, last seen on 07/06/22 -Optimize BP control -Avoid nephrotoxic drugs -Consider re-referral Assessment & Plan (01/31/2024 10:54 AM EDT): -Previously seeing transitional care nurse, Dr. Galvez, last seen on 07/06/22 -Optimize BP control -Avoid nephrotoxic drugs -Consider re-referral Assessment & Plan (10/14/2023 6:09 AM EST): -Co-managed with transitional care nurse, Dr. Galvez, last seen on 07/06/22 -Optimize BP control -Avoid nephrotoxic drugs Assessment & Plan (01/25/2023 2:00 PM EDT): -Co-managed with transitional care nurse, Dr. Galvez, last seen on 07/06/22 -Optimize BP control -Avoid nephrotoxic drugs Assessment & Plan (10/05/2022 12:07 PM EST): -Co-managed with transitional care nurse, Dr. Galvez, last seen on 07/06/22 -Optimize BP control -Avoid nephrotoxic drugs Assessment & Plan (08/30/2022 9:53 AM EST): -Co-managed with transitional care nurse, Dr. Galvez, last seen on 07/06/22 -08/04/22 BUN 19; SCr 1.42; eGFR 59; K 4.3 -Optimize BP control -Avoid nephrotoxic drugs Assessment & Plan (08/30/2022 7:15 AM EST): -Co-managed with transitional care nurse, Dr. Galvez, last seen on 07/06/22 -Optimize BP control -Avoid nephrotoxic drugs Tubular adenoma of colon 08/30/2022 Assessment & Plan (10/14/2023 6:08 AM EST): -Colonoscopy by Dr. Mehta, [facility], on 05/27/20, tubular adenoma -Recommended to repeat in 5 years Assessment & Plan (10/05/2022 12:07 PM EST): -Colonoscopy by Dr. Mehta, [facility], on 05/27/20, tubular adenoma -Recommended to repeat in 5 years Assessment & Plan (08/30/2022 9:54 AM EST): -Colonoscopy by Dr. Mehta, [facility], on 05/27/20, tubular adenoma -Recommended to repeat in 5 years Assessment & Plan (08/30/2022 7:13 AM EST): -Colonoscopy by Dr. Mehta, [facility], on 05/27/20, [...] - continues to be elevated -Co-managed with [facility] pharmacist / CDTM and transitional care nurse -Continue amlodipine 10 mg daily, improve adherence -Continue checking BP at home. Pt declined 24-hour BP monitoring by transitional care nurse. -Continue Working on lifestyle modifications. Discussed about low sodium diet -Treatment HX: --HCTZ -> hypokalemia; lisinopril was discontinued once due to ESE and discontinued again --Metoprolol was self-disconitnued due to concern of side effects --losartan 12.5 mg was self-discontinued since pt had not been adherent and was found to have goal BP without it - Patient was previously seeing a transitional care nurse, but stopped going. Consider re-referral to transitional care nurse / console assembler Assessment & Plan (04/24/2024 4:15 PM EDT): -Goal BP < 140/90 per JNC-8, < 130/80 per ACC/AHA guideline - continues to be elevated -Co-managed with [facility] pharmacist / CDTM and transitional care nurse -Continue amlodipine 10 mg daily, improve adherence -Continue checking BP at home. Pt declined 24-hour BP monitoring by transitional care nurse. -Continue Working on lifestyle modifications. Discussed about low sodium diet -Treatment HX: --HCTZ -> hypokalemia; lisinopril was discontinued once due to ESE and discontinued again --Metoprolol was self-disconitnued due to concern of side effects --losartan 12.5 mg was self-discontinued since pt had not been adherent and was found to have goal BP without it - Patient was previously seeing a transitional care nurse, but stopped going. Consider re-referral to transitional care nurse / console assembler Assessment & Plan (04/17/2024 11:30 AM EDT): Goal BP < 140/90 per JNC-8, < 130/80 per ACC/AHA guideline Elevated for last few days likely due to pain Pt tells me everytime he checks his Bllod pressure at home is normal , so he discontinued the amlodipine 10 mg daily. Plan: Continue checking BP at home. Pt declined 24-hour BP monitoring by transitional care nurse.Continue Working on lifestyle modifications. Pt gladis has [...] and patient lost his medication -Co-managed with [facility] pharmacist / CDTM and transitional care nurse -Continue amlodipine 10 mg daily., patient has not been taking so will restart -Continue checking BP at home. Pt declined 24-hour BP monitoring by transitional care nurse. -Continue Working on lifestyle modifications. -Treatment HX: --HCTZ -> hypokalemia; lisinopril was discontinued once due to ESE and discontinued again --Metoprolol was self-disconitnued due to concern of side effects --losartan 12.5 mg was self-discontinued since pt had not been adherent and was found to have goal BP without it - Patient was previously seeing a transitional care nurse, but stopped going. Consider re-referral to transitional care nurse / console assembler Assessment & Plan (10/14/2023 6:06 AM EST): -Goal BP < 140/90 per JNC-8, < 130/80 per ACC/AHA guideline -Suboptimal control, questionable medication adherence -Co-managed with [facility] pharmacist / CDTM and transitional care nurse -Continue amlodipine 10 mg daily. -Continue checking BP at home. Pt declined 24-hour BP monitoring by transitional care nurse. -Continue Working on lifestyle modifications. -Treatment HX: [...] in Jun - Jul 2022 -Co-managed with [facility] pharmacist / CDTM and transitional care nurse -Continue amlodipine 10 mg daily. -Continue checking BP at home. Pt declined 24-hour BP monitoring by transitional care nurse. -Continue Working on lifestyle modifications. -Treatment HX: [...] -Suboptimal control in JunJul 2022 -Co-managed with [facility] pharmacist / CDTM and transitional care nurse -Continue amlodipine 10 mg daily. -Continue checking BP at home. Pt declined 24-hour BP monitoring by transitional care nurse. -Continue Working on lifestyle modifications. -Treatment HX: [...] -Suboptimal control in JunJul 2022 -Co-managed with [facility] pharmacist / CDTM and transitional care nurse -Continue amlodipine 10 mg daily. -Continue checking BP at home. Pt declined 24-hour BP monitoring by transitional care nurse. -Continue Working on lifestyle modifications. -Treatment HX: [...] -Suboptimal control in JunJul 2022 -Co-managed with [facility] pharmacist / CDTM and transitional care nurse -Continue amlodipine 10 mg daily. -Continue checking BP at home. Pt declined 24-hour BP monitoring by transitional care nurse. -Continue Working on lifestyle modifications. -Treatment HX: [...] -Suboptimal control in JunJul 2022 -Co-managed with [facility] pharmacist / CDTM and transitional care nurse -Continue amlodipine 10 mg daily. -Continue checking BP at home. Pt declined 24-hour BP monitoring by transitional care nurse. -Continue Working on lifestyle modifications. -Treatment HX: --HCTZ -> hypokalemia; lisinopril was discontinued once due to ESE and discontinued again --Metoprolol was self-disconitnued due to concern of side effects --losartan 12.5 mg was self-discontinued since pt had not been adherent and was found to have goal BP without it Allergic rhinitis 02/24/2016 Assessment & Plan (02/04/2023 9:00 AM EDT): Works in [employer] and possibly seasonal Assessment & Plan (10/05/2022 12:09 PM EST): Works in [employer] and possibly seasonally Gastroesophageal reflux disease 08/09/2012 [...] -Normal erythropoietin level in 2018 -Refer to subassembly assembler Chronic kidney disease (CKD) stage G3a/A1, moderately decreased glomerular filtration rate (GFR) between 45-59 mL/min/1.73 square meter and albuminuria creatinine ratio less than 30 mg/g 08/06/2022 08/30/2022 Elevated levels of transamin ase & lactic acid dehydrogenase 08/09/2012 08/30/2022 Encounters Date Type Department Care Team Description 06/20/2025 Telephone [facility] [address] [place] [address] Bushra Segura MD 06/10/2025 Travel 05/24/2025 8:40 AM EDT Office Visit [facility] [address] [place], [place] [phone] Russell Lu MD Poison sheyla dermatitis (Primary Dx) 05/24/2025 Refill [facility] [address] [place], [place] [phone] Bushra Segura MD 05/24/2025 Travel from Last 3 Months Immunizations Immunization Administration Dates Next Due Hep B, adult 04/24/2024,10/03/2023,01/25/2023 Influenza injectable quadriv alent IIV4 with preservative 06/01/2016,05/19/2015 Influenza injectable quadriv alent preservative free 10/03/2023,10/05/2022,06/22/2021,2018,08/24/2018,06/13/2017 Influenza, IIV3, injectable 09/18/2014, 1 Influenza, Split (incl. giuseppe fied surface antigen) 06/20/2013,08/09/2012 Influenza, Unspecified 09/18/2014,05/25/2011 Influenza, seasonal, injecta ble, preservative free 09/11/2024 Moderna Covid-19 Vaccine 12+ 08/04/2021,12/16/19,11/17/2020 Pfizer Covid-19 Vaccine 12+ 09/11/2024, Pfizer Covid-19 Vaccine 12+ Bivalent 10/05/2022 Pfizer [...] Sign Reading Time Taken Comments Blood Pressure 141/93 05/24/2025 8:46 AM EDT Pulse 79 05/24/2025 8:46 AM EDT Temperature 36.7 C (98.1 F) 05/24/2025 8:46 AM EDT Respiratory Rate 18 05/24/2025 8:46 AM EDT Oxygen Saturation 97% 05/24/2025 8:46 AM EDT Inhaled Oxygen Concentration - - Weight 77.1 kg (170 lb) 05/24/2025 8:46 AM EDT Height 167.6 cm (5' 6 ) 04/24/2024 3:20 PM EDT Body Mass Index 27.44 04/24/2024 3:20 PM EDT Plan of Treatment Health Maintenance Due Date Last Done Comments CT Colonography 1969 FIT DNA/Cologuard 1969 FIT 1969 FOBT 1969 Sigmoidoscopy 1969 Pneumococcal Vaccine: 50+ Years (1 of 1 - PCV) 2019 DTaP/Tdap/Td Vaccines (2 - Td or Tdap) 05/25/2021 05/25/2011 Diabetes: Hemoglobin A1C 11/10/2024 024, 08/04/2022, 06/26/2021, Additional history exists SDOH Screening 11/17/2024 11/18/2023 Depression Screening 01/23/2025 01/24/2024, 01/24/20 24 COVID-19 Vaccine ( season) 2025 09/11/2024, 10/05/2022, 04/30/2022, Additional history exists Influenza Vaccine (#1) 2025 , 10/03/2023, 10/05/2022, Additional history exists Alcohol/Substance Use Screening 09/11/2025 09/11/2024 Tobacco Screening 05/24/2026 05/24/2025 Disability Screening 06/10/2026 06/10/2025 Lipid Panel 11/10/2028 11/11/2023, 07/08, 06/26/2021 Colonoscopy 01/20/2033 01/20/2023, 08/30/2022 Colorectal Cancer Screening 01/20/2033 RSV Patients and Patients Aged 60 years or older (1 - 1-dose 75+ series) 2044 Zoster Vaccines Completed 03/26/2020, 11/05/2019 Hepatitis B Vaccines Completed 04/24/2024, 10/03/2023, 01/25/2023 HIV Screening Completed 09/03/2024, 07/08, 08/09/2019 Hepatitis C Screening Completed 09/03/2024 , 08/04/2022, 08/09/2019 HIB Vaccines Aged Out No longer eligi [...] patient's age to complete this topic Meningococcal B Vaccine Aged Out No l onger eligible based on patient's age to complete [...] Blood Pressure 141/93( 025 8:46 AM EDT) Vladimir Mac, DanialD Procedures Procedure Name Priority Date/Time Associated Diagnosis Comments HEPATITIS C ANTIBODY ([facility]) Routine 09/03/2024 HIV ANTIBODY/ANTIGEN ([facility]) Routine 09/03/2024 HEMOGLOBIN A1C Routine 11/11/2023 9:03 AM EST Hypertriglyceridemi a LIPID PANEL WITH REFLEX TO DIRECT LDL Routine 11/11/2023 9:03 AM EST Hypertriglyceridemi a HM COLONOSCOPY Routine 01/20/2023 3:14 PM EDT from Last 3 Months or Most Recently Relevant to Health Maintenance Results * Hepatitis C Antibody ([facility]) (09/03/2024) Hepatitis C Ab Nonreactive Blood 09/03/2024 Historical Provider LAB BLOOD ORDERABLES Peggy l Result * HIV Ab/Ag ([facility]) (09/03/2024) HIV Ag/Ab Nonreactive Blood 09/03/2024 Historical Provider LAB BLOOD ORDERABLES Peggy l Result * (ABNORMAL) Lipid Panel with Reflex to Direct LDL (11/11/2023 9:03 AM EST) Triglycerides 352(H) <150 mg/dL [facility] Comment:Desirable Triglyceri de: less than 150 mg/dLBorderline High Triglyceride 150-199 mg/dLHigh Triglyceride: 200-499 mg/dLVery High Triglyceride: greater than or equal to 5OO mg/dL Cholesterol 211(H) <200 mg/dL [facility] Comment:Desirable Cholestero l: less than 200 mg/dLBorderline High Cholesterol: 200-239 mg/dLHigh Cholesterol: greater than 239 mg/dL LDL Cholesterol Calculated 106(H) <100 mg/dL [facility] Comment:Desirable LDL: less than 100 mg/dLNear Optimal/Above Optimal LDL: 110- 129 mg/dLBorderline High LDL: 130-159 mg/dLHigh LDL: 160-189 mg/dLVery High LDL: greater than or equal to 190 mg/dL HDL Cholesterol 35(L) >40 mg/dL [facility] Comment:Desirable HDL: great er than 40 mg/dL Note: This HDL assay may give artificially low results in patients with liver disease. Blood 11/11/2023 9:03 AM EST 11/11/2023 11:29 AM EST Bushra Segura MD LAB BLOOD ORDERABLES Final Resul t [facility] [address] [place] [address] [phone] * Hemoglobin A1c (11/11/2023 9:03 AM EST) Hemoglobin A1c 5.9 <6.0 % [facility] Comment:Hemoglobin A1C Refer ence Range Adults: 4.8 - 6.0 % Non diabetic: < 6.0 % Goal: < 7.0 %Additional Action Suggested: > 8.0 %Note: Hemoglobin A1c results are invalid for patients with abnormal amounts of HbF. Blood transfusions may impact the HbA1c concentration in the patient sample. Estimated Average Glucose 123 mg/dL [facility] Comment:eAG = Estimated ave rage glucose which is %A1C expressed asaverage glucose, using the formula of the [id number] Glucose study (ADAG), Diabetes Care, Vol.31,#8,Apr. 2007 Blood Venous blood specimen / Unknown 11/11/2023 9:03 AM EST 11/11/2023 11:19 AM EST us Bushra Segura MD LAB BLOOD ORDERABLES Final Resul t [facility] [address] [place] [address] [phone] * Hm Colonoscopy (01/20/2023 3:14 PM EDT) Colonoscopy Normal Normal us Arnaldo Mehta MD HEALTH MAINTENANCE Final Result from Last 3 Months or Most Recently Relevant to Health Maintenance [place] [address] [place] [address] HMO HSN PARTIAL Care Teams Broker [employer] Relationship Specialty Start Date End Date Bushra Segura MD [address] [place] [id number] PCP - General Family Medicine 08/06/11 Vladimir Domingo, DanialD [address] [place] [phone] Pharmacist Internal Medicine 10/11/22
--- OUTSIDE RECORDS SUMMARY | 2025-08-21 06:32 | XMS_ITS | Encounter Summary ---
Author Organization [employer] Address [address] [facility] [address] [place] [address] Care Team Providers Care Director Property Name Role Phone Bushra Segura MD Primary Care Provider [phone] Vladimir Domingo PharmD Unavailable [phone] Reason for Visit * Reason Onset Date Comments Nurse Triage 04/16/2024 Encounter Details Date Type Department Care Team ([facility] st Contact Info) Description 04/16/2024 Telephone [facility] [address] [place], [place] [phone] Bushar Segura MD [address] [place], [place] [phone] Nurse Triage Social History Tobacco Use Types [...] 04/16/2024 11:33 AM EDT Called pt. Via [employer] [phone] Jovany. Pt. States that he woke up 2 days ago with rightfoot pain. Right foot ankle pain , swelling and redness with blood pocket on ankle. pt. Was Unable to walk. Pt was treated by ED provider taking out blood from his ankle area at [facility] ED and then pt. Was able to walk. Pt. States that ankle was swollen and painful again so he went Yesterday 04/15/24 back to [facility] ED for foot pain, swelling and blood in skin. Pt. States that MRI's, Xrays, and blood testing taken. Pt states that he also had blood taken out of his foot as well. Pt. Was referred to a document processing specialist. Pt. Went to [facility] specialist today at [address] Through [facility] to book an appt. As he wa referred there through ED but, pt. Was told that he had to wait for them to call him tobook an appt. Pt. Also told to book fu appt. With provider at [facility]. Appt booked for 04/17/[address] Akers. Pt. States no fever today, right foot slightly swollen and can walk on foot today.Will request notes from [facility] with clinical coordinators to have notes in chart from [facility] ED visits from 04/09/24-04/16/24 to be put [...] * Pain Medicines * Telephone Encounter - Davidshanellmekhisanya Wesley Payan - 04/16/2024 11:05 AM EDT Symptom: Leg Swelling - Not From Injury Outcome: Schedule an urgent appointment (within 1 hour) or talk to a nurse or provider soon Reason: Severe leg pain now The caller accepted this outcome documented in this encounter Plan of Treatment Not on file documented as of this encounter Goals Goal Patient Goal Type Associated Problems Recent Progress Patient-Stated? Author Blood Pressure < 140/90 Blood Pressure 141/93( 025 8:46 AM EDT) No Vladimir Domingo PharmD documented as of this encounter Visit Diagnoses Not on filedocumented in this encounter Additional Health Concerns Assessment Noted Time PHQ-9 Depression Total Score: 0 01/24/20 24 3:36 PM EDT documented as of this encounter Care Teams Director Property Relationship Specialty Start Date End Date Bushra Segura MD [address] [place] [address] PCP - General Family Medicine 08/06/11 Vladimir Domingo PharmD [address] [place] [address] Pharmacist Internal Medicine 10/11/22 documented as of this encounter
--- OUTSIDE RECORDS SUMMARY | 2025-08-21 06:32 | XMS_ITS | Encounter Summary ---
Author Organization [employer] Address [address] [facility] [address] [place] [address] Care Team Providers Care Professional System Administrator Name Role Phone Bushra Segura MD Primary Care Provider [phone] Vladimir Domingo PharmD Unavailable [phone] Reason for Visit * Reason Onset Date Comments Appointment Request 10/26/2024 Encounter Details Date Type Department Care Team ([facility] Contact Info) Description 10/26/2024 Telephone [facility] [address] [place], [place] [phone] Bushra Segura MD [address] [place], [place] [phone] Appointment Request Social History Tobacco Use Types [...] documented as of this encounter Care Teams Professional System Administrator Relationship Specialty Start Date End Date Bushra Segura MD [address] [place] [address] PCP - General Family Medicine 08/06/11 Vladimir Domingo PharmD [address] [place] [address] Pharmacist Internal Medicine 10/11/22 documented as of this encounter
--- OUTSIDE RECORDS SUMMARY | 2025-08-21 06:32 | XMS_ITS | Encounter Summary ---
Author Organization [employer] Address [address] [facility] [address] [place] [address] Care Team Providers Care Injection Molding Operator Name Role Phone Bushra Segura MD Primary Care Provider [phone] Vladimir Domingo PharmD Unavailable [phone] Encounter Details Date Type Department Care Team (Latest Contact Info) Description 11/20/2019 Abstract [facility]S Dental, Provider, DDS Social [...] on filedocumented in this encounter Care Teams Injection Molding Operator Relationship Specialty Start Date End Date Bushra Segura MD [address] [place] [address] PCP - General Family Medicine 08/06/11 Vladimir Domingo, PharmD [address] [place] [address] Pharmacist Internal Medicine 10/11/22 documented as of this encounter
--- OUTSIDE RECORDS SUMMARY | 2025-08-21 06:32 | XMS_ITS | Encounter Summary ---
Author Organization [employer] Address [address] [place] [address] Care Team Providers Care Programmer Engineering And Scientific Name Role Phone Bushra Segura MD Primary Care Provider Vladimir Domingo PharmD Unavailable [phone] Reason for Visit * Reason Onset Date Comments Reschedule 07/12/2023 Encounter Details Date Type Department Care Team ([facility] st Contact Info) Description 07/12/2023 Telephone [facility] MEDICINE [address] [place], [place] [phone] Bushra Segura MD [address] [place], [place] [phone] Reschedule Social History Tobacco Use Types Packs/Day [...] Miscellaneous Notes * Telephone Encounter - Yusra Hernandezoyo - 07/12/2023 4:00 PM EST Tc from pt requesting r/s 07/19/2023 (HTN / lab) appt, typewriter aligner attempted to schedule no availabilityafter 3:00PM due [...] documented as of this encounter Care Teams Programmer Engineering And Scientific Relationship Specialty Start Date End Date Bushra Segura MD [address] [place] [address] PCP - General Family Medicine 08/06/11 Vladimir Domingo, PharmD [address] [place] [address] Pharmacist Internal Medicine 10/11/22 documented as of this encounter
--- OUTSIDE RECORDS SUMMARY | 2025-08-21 06:32 | XMS_ITS | Encounter Summary ---
Author Organization [employer] Address [address] [facility] [address] [place] [address] Care Team Providers Care Lining Ironer Name Role Phone Bushra Segura MD Primary Care Provider [phone] Vladimir Domingo PharmD Unavailable [phone] Encounter Details Date Type Department Care Team ([facility] st Contact Info) Description 08/30/2022 Abstract [facility] MEDICINE [address] [place], [place] [phone] Bushra Segura MD [address] [place], [place] [phone] Primary hypertension (Primary Dx); Tubular adenoma of [...] in Jun - Jul 2022 -Co-managed with [facility] pharmacist / CDTM and master planner -Continue amlodipine 10 mg daily. -Continue checking BP at home. Pt declined 24-hour BP monitoring by master planner. -Continue Working on lifestyle modifications. -Treatment HX: [...] kidney disease) stage 3, GFR 30-59 ml/min (CMS/HCC) ([facility]) -Co-managed with master planner, Dr. Galvez, last seen on 07/06/22 -Optimize BP control -Avoid nephrotoxic drugs * Assessment & Plan Note - Bushra Segura MD - 08/30/2022 7:13 AM ESTAssociated Problem(s): Tubular adenoma of colon -Colonoscopy by Dr. Mehta, [facility], on 05/27/20, tubular [...] colon Stage 3a chronic kidney disease (CMS/HCC) (HCC) documented in this encounter Care Teams Lining Ironer Relationship Specialty Start Date End Date Bushra Segura MD [address] [place] [id number] PCP - General Family Medicine 08/06/11 Vladimir Domingo, PharmD [address] [place] [address] [place] [address] Pharmacist Internal Medicine 10/11/22 documented as of this encounter
--- OUTSIDE RECORDS SUMMARY | 2025-08-21 06:32 | XMS_ITS | Clinical Summary ---
Author Organization [facility] Address [address] [place] [address] Phone Care Team Providers Care Set Up And Lay Out Inspector Name Role Phone Physician, No Pcp Primary Care Provider Unavaila ble Allergies Active Allergy Reactions Criticality Noted Date Comments Nsaids (Non-Steroidal Anti-I nflammatory Drug) 08/30/2022 CKD Medications EPINEPHrine (EPIPEN) 0.3 mg/0.3 mL injection Inject 0.3 mL (0.3 mg total) into the thigh if needed for anaphylaxis . 1 each 05/31/2025 Active Encounters Date Type Department Care Team Description 05/31/2025 4:37 PM EDT - 05/31/2025 7:18 PM EDT Emergency [facility] Emergency [address] [place] [address] Magda Julian MD Allergic reaction, initial encounter (Primary Dx) Discharge Disposition: Home or Self Care from Last 3 Months Medical History Medical History Date Comments Hypertension Social History Tobacco Use Types Packs/Day Years Used Date Smoking Tobacco: Never Smokeless Tobacco: Never Tobacco Cessation:Counseling Given: Not Answered Sex and Gender Information Value Date Recorded Sex Assigned at Not on file Legal Sex Male 3:42 PM EDT Gender Identity Not on file Sexual Orientation Not on file Last Filed Vital Signs Vital Sign Reading Time Taken Comments Blood Pressure 144/85 05/31/2025 7:17 PM EDT Pulse 89 05/31/2025 7:17 PM EDT Temperature 36.5 C (97.7 F) 05/31/2025 7:17 PM EDT Respiratory Rate 18 05/31/2025 7:17 PM EDT Oxygen Saturation 95% 05/31/2025 7:17 PM EDT Inhaled Oxygen Concentration - - Weight 80.7 kg (178 lb) 05/31/2025 4:36 PM EDT Height 170.2 cm (5' 7 ) 05/31/2025 4:36 PM EDT Body Mass Index 27.88 05/31/2025 4:36 PM EDT Plan of Treatment Health Maintenance Due Date Last Done Comments Colorectal Cancer Screening: Colonoscopy 1970 Pneumococcal Vaccine: 50+ Years (1 of 1 - PCV) 2019 DTaP,Tdap,and Td Vaccines (2 - Td or Tdap) 05/25/2021 05/25/2011 Cholesterol Screening (Lipid Panel) 06/30/2024 HIV Screening 06/30/2024 Hepatitis C Screening 06/30/2024 Social Influencers of Health Screening 06/30/2024 Depression Screening 09/05/2024 COVID-19 Vaccine ( - season) 2025 09/11/2024, 10/05/2022, 04/30/2022, Additional history exists Influenza Vaccine (#1) 2025 , 10/03/2023, 10/05/2022, Additional history exists Hypertension/CHF/CAD Annual BMP Blood Test 05/31/2025 RSV Immunization Adult Patients (1 - 1-dose 75+ series) 2044 Zoster Vaccines Completed 03/26/2020, 11/05/2019 Hepatitis B Vaccines Completed 04/24/2024, 10/03/2023, 01/25/2023 HIB Vaccines Aged Out No longer eligi [...] on patient's age to complete this topic MMR Vaccines Aged Out No longer eligi ble based on patient's age to complete this topic Meningococcal ACWY Vaccine Aged Out N o longer eligible based on patient's age to complete this topic Meningococcal B Vaccine Aged Out No l onger eligible based on patient's age to complete this topic RSV Immunization Patients Under 20 months Aged Out No longer eligible based on patient's age to complete this topic Varicella Vaccines Aged Out No longer eligible based on patient's age to complete this topic Insurance [facility] Care Teams Set Up And Lay Out Inspector Relationship Specialty Start Date End Date Physician, No Pcp PCP - General 05/31/25
--- OUTSIDE RECORDS SUMMARY | 2025-08-21 06:32 | XMS_ITS | Encounter Summary ---
Author Organization [employer] Address [address] [place] [address] Care Team Providers Care Ends Breakage Clerk Name Role Phone Bushra Segura MD Primary Care Provider [phone] Vladimir Domingo PharmD Unavailable [phone] Reason for Visit * Reason Comments Med Refill Encounter Details Date Type Department Care Team ([facility] st Contact Info) Description 04/19/2025 Refill [facility] [address] [place], [place] [phone] Bushra Segura MD [address] [place] [address] Social History Tobacco Use Types Packs/Day Years [...] documented as of this encounter Care Teams Ends Breakage Clerk Relationship Specialty Start Date End Date Bushra Segura MD [address] [place] [address] PCP - General Family Medicine 08/06/11 Vladimir Domingo, PharmD [address] [place] [address] Pharmacist Internal Medicine 10/11/22 documented as of this encounter
[2025-08-21 07:44] LABS: Alanine Aminotransferase 35 U/L (0-40); Albumin Level 4.6 g/dL (3.5-5.0); Alkaline Phosphatase 100 U/L (39-117); Anion Gap 13 (12-20); Aspartate Amino Transferase 36 U/L (5-37); Blood Urea Nitrogen 13 mg/dL (9-16); Calcium 9.0 mg/dL (8.4-10.2); Carbon Dioxide 29 mmol/L (22-29); Chloride 103 mmol/L (96-108); Cholesterol 211 mg/dL (<200); Estimated Glomerular Filt Rate > 60; HDL Cholesterol 38 mg/dL (>40); Potassium 3.5 mmol/L (3.3-5.1); Sodium 141 mmol/L (135-145); Total Protein 6.9 g/dL (6.5-8.0); Triglycerides 204 mg/dL (<150)
[2025-08-21 08:08] LABS: Microalbum/Creatinine Ratio Ur 11.1 ug/mg cr (<30)
[2025-08-21 08:41] LABS: Reflex LDLD? No
== END 2025-08-21 06:29 ==
LOC: HO.LAB 06:28
PROVIDERS: PCP Family Medicine; Visit Provider Family Medicine
DX: I10 Essential (primary) hypertension (principal); E55.9 Vitamin D deficiency, unspecified; E78.1 Pure hyperglyceridemia; E78.5 Hyperlipidemia, unspecified; R73.03 Prediabetes
CPT/HCPCS: 36415; 80053; 80061; 82043; 82306; 82570; 83036